=== PATIENT | female | born 1950 | race Caucasian/White ===

== ENCOUNTER 2017-03-11 13:24 | Emergency (ER) | payer MEDICARE, MEDICAID ==
--- NOTE | 2017-03-11 14:07 | ED.PDOC ---
History of Present Illness - General Chief Complaint: Trauma Stated Complaint: fall Time Seen by Provider: 03/11/17 13:42 Source: patient, RN notes reviewed, Vital Signs reviewed Exam Limitations: no limitations - History of Present Illness Initial Comments: Patient comes in with c/o R hip & leg pain after a fall @ home on 03/08/17. Reports she has been having problems with her balance for the past 4-5 days. Reports this happens off and on for the past year. Prior to the balance issue she gets a bad TATUM. She was suppose to see a Neurologist but has not. He reports she can't walk due to the pain in her R leg. She had a hip fracture in the past that was repaired surgically. She has been taking Hydrocodone 10mg Q6 hours at home without relief of her pain. She is on Pelican and Morphine chronically for chronic back pain. She also takes Valium, Xanax and Ambien on a daily basis. Timing/Duration: constant - for 4 days Severity: severe Improving Factors: rest Worsening Factors: movement Associated Symptoms: headaches, shortness of breath Allergies/Adverse Reactions: Allergies Aspirin Allergy (Verified 03/11/17 13:46) Codeine Allergy (Verified 03/11/17 13:46) Penicillins Allergy (Verified 03/11/17 13:46) Sulfa Drugs Allergy (Verified 03/11/17 13:46) Home Medications: Ambulatory Orders Duloxetine HCl [Cymbalta] 60 mg PO DAILY 10/24/12 Esomeprazole Magnesium [Nexium] 40 mg PO DAILY 10/24/12 Furosemide [Lasix] 20 mg PO DAILY 10/24/12 Multiple Vitamin [Multivitamins] 1 cap PO DAILY 10/24/12 Nitroglycerin [Nitrostat] 0.4 mg SL .Q5MIN X3 PRN 10/24/12 Quetiapine Fumarate [Seroquel] 200 mg PO HS 10/24/12 Zolpidem Tartrate [Ambien] 10 mg PO HS 10/24/12 Montelukast [Singulair] 10 mg PO DAILY 10/25/12 Topiramate 50 mg PO QID 10/25/12 tiZANidine [Zanaflex] 4 mg PO BID PRN 10/25/12 Acetaminophen [Tylenol] 650 mg PO Q6H PRN 04/21/14 Albuterol Sulfate Nebs [Proventil Nebs] 2.5 mg INH QID PRN 04/21/14 Ferrous Sulfate [Feosol Tab] 325 mg PO TID 04/21/14 Fluticasone/Salmeterol 250/50 [Advair Diskus] 1 puff INH DAILY 04/21/14 Gabapentin 300 mg PO TID 04/21/14 HYDROcodone 10MG/APAP 325MG [Pelican 10/325] 1 - 2 ea PO Q4H PRN 04/21/14 Morphine Sulfate [Ms Contin] 30 mg PO DAILY 04/21/14 Ondansetron Tab [Zofran Tab] 4 mg PO Q6H PRN 04/21/14 Acetaminophen W/ Codeine [Tylenol w/Codeine 300-30 mg] 1 tab PO Q4HR PRN #10 tab 09/02/14 Albuterol Inhaler [Ventolin Hfa Inhaler] 1 puff INH DAILY 04/01/16 Cholecalciferol [Vitamin D] 1,000 unit PO DAILY 04/01/16 Cyclobenzaprine HCl [Flexeril] 10 mg PO PRN PRN 04/01/16 Fluticasone/Salmeterol 250/50 [Advair Diskus] 0 mcg INH BID 04/01/16 HYDROcodone 10MG/APAP 325MG [Pelican 10/325] 1 tab PO PRN PRN 04/01/16 Lisinopril 20 mg PO DAILY 04/01/16 Montelukast [Singulair] 10 mg PO DAILY 04/01/16 Prochlorperazine Tab [Compazine Tab] 5 mg PO DAILY 04/01/16 Promethazine HCl 25 mg PO PRN PRN 04/01/16 Tramadol HCl 50 mg PO BID 04/01/16 levoFLOXacin [Levaquin] 500 mg PO DAILY #14 tab 03/11/17 Review of Systems - Review of Systems Constitutional: States: no symptoms reported EENTM: States: no symptoms reported Respiratory: States: short of breath Cardiology: States: no symptoms reported Gastrointestinal/Abdominal: States: no symptoms reported Musculoskeletal: States: back pain - chronic, joint pain - R hip and knee, joint swelling - R knee Skin: States: no symptoms reported Neurological: States: headache All other Systems: No Change from Baseline Past Medical History (General) - Patient Medical History Hx Seizures: No Hx Stroke: No Hx Asthma: Yes Hx of COPD: Yes Hx Cardiac Disorders: Yes Hx Congestive Heart Failure: Yes Hx Pacemaker: No Hx Hypertension: Yes Hx Diabetes: No Hx Gastroesophageal Reflux: Yes Hx MRSA: No Surgical History: cholecystectomy - Vaccination History Hx Tetanus, Diphtheria Vaccination: No Hx Influenza Vaccination: No Hx Pneumococcal Vaccination: No - Social History Hx Tobacco Use: No Hx Alcohol Use: No Hx Substance Use: No Hx Substance Use Treatment: No Hx Depression: No Hx Physical Abuse: No Hx Emotional Abuse: No - Female History Patient is a Female of Child Bearing Age (10 -59 yrs old): No Patient : No Family Medical History - Family History Grandparents Family History: Unknown Physical Exam - Physical Exam General Appearance: Comfortable, No apparent distress, Lethargic, Well Developed , Well Groomed, Well Hydrated, Well Nourished Ears, Nose, Throat: hearing grossly normal Neck: full range of motion, supple, normal inspection Respiratory: lungs clear, normal breath sounds, no respiratory distress, no accessory muscle use Cardiovascular/Chest: normal peripheral pulses, regular rate, rhythm, no gallop , no murmur Peripheral Pulses: dorsalis pedis,right: 2+, dorsalis pedis,left: 2+ Extremity: swelling - R knee with joint effusion and limited ROM due to pain and swelling., other - R hip: limited ROM due to pain, tender over lateral mid thigh. Neurologic: no motor/sensory deficits, alert, normal mood/affect, oriented x 3 Skin Exam: normal color, warm/dry Comments: Vital Signs 03/11/17 13:33 Temperature 98 F Pulse Rate [ 57 L pulse ox] Respiratory 16 Rate Blood Pressure 141/70 [Left Arm] O2 Sat by Pulse 94 L Oximetry Progress - Progress Progress: 03/11/17 15:00 Patient walked to bathroom with minimal assistance by nurse. - Results/Orders Results/Orders: Laboratory Tests 03/11/17 03/11/17 03/11/17 14:05 14:05 14:53 WBC 5.8 RBC 3.86 L Hgb 11.8 L Hct 36.1 MCV 93.5 MCH 30.5 MCHC 32.8 L RDW 13.0 Plt Count 176 MPV 8.3 Absolute Neuts (auto) 3.40 Absolute Lymphs (auto) 1.50 Absolute Monos (auto) 0.40 Absolute Eos (auto) 0.40 Absolute Basos (auto) 0.10 Neutrophils % 59.3 Lymphocytes % 25.6 Monocytes % 6.8 Eosinophils % 6.4 H Basophils % 1.9 Sodium 137 Potassium 3.1 L Chloride 97 L Carbon Dioxide 32 H Anion Gap 11.1 L BUN 22 H Creatinine 0.95 BUN/Creatinine Ratio 23.2 H Random Glucose 90 Serum Osmolality 276.7 Calcium 8.6 Total Bilirubin 0.5 AST 25 ALT 15 Alkaline Phosphatase 87 Serum Total Protein 6.8 Albumin 3.8 Globulin 3.0 Albumin/Globulin Ratio 1.3 Urine Color Urine Appearance Urine pH Ur Specific [place] Urine Protein Urine Glucose (UA) Urine Ketones Urine Blood Urine Nitrite Urine Bilirubin Urine Urobilinogen Ur Leukocyte Esterase Urine RBC Urine WBC Ur Epithelial Cells Urine Bacteria Urine Opiates Screen Negative Urine Barbiturates Negative Ur Phencyclidine Scrn Negative U Amphetamin/Meth Scrn Negative U Benzodiazepines Scrn Positive H U Cocaine Metab Screen Negative U Cannabinoids Screen Negative 03/11/17 14:55 WBC RBC Hgb Hct MCV MCH MCHC RDW Plt Count MPV Absolute Neuts (auto) Absolute Lymphs (auto) Absolute Monos (auto) Absolute Eos (auto) Absolute Basos (auto) Neutrophils % Lymphocytes % Monocytes % Eosinophils % Basophils % Sodium Potassium Chloride Carbon Dioxide Anion Gap BUN Creatinine BUN/Creatinine Ratio Random Glucose Serum Osmolality Calcium Total Bilirubin AST ALT Alkaline Phosphatase Serum Total Protein Albumin Globulin Albumin/Globulin Ratio Urine Color Yellow Urine Appearance Clear Urine pH 7.0 Ur Specific [place] 1.020 Urine Protein Negative Urine Glucose (UA) Negative Urine Ketones Negative Urine Blood Negative Urine Nitrite Negative Urine Bilirubin Negative Urine Urobilinogen 0.2 Ur Leukocyte Esterase Negative Urine RBC 0 Urine WBC 0 Ur Epithelial Cells 1-3 Urine Bacteria 0 Urine Opiates Screen Urine Barbiturates Ur Phencyclidine Scrn U Amphetamin/Meth Scrn U Benzodiazepines Scrn U Cocaine Metab Screen U Cannabinoids Screen - EKG/XRAY/CT XRAY: R knee: DJD & Osteoporosis, no acute injury per Radiologist. - old internal fixator, no acute fracture per Radiologist CT Ordered: Yes - Head: no acute findings other than chronic maxillary sinusitis per Radiolog Departure - Departure Clinical Impression: Maxillary sinusitis, chronic Sprain of right knee Qualifiers: Encounter type: initial encounter Involved ligament of knee: unspecified ligament Qualified Code(s): S83.91XA - Sprain of unspecified site of right knee , initial encounter Contusion of right hip and thigh Qualifiers: Encounter type: initial encounter Qualified Code(s): S70.01XA - Contusion of right hip, initial encounter Time of Disposition: 15:44 Disposition: Discharge to Home or Self Care Condition: Good Departure Forms: ED Discharge - Pt. Copy, Patient Portal Self Enrollment Instructions: DI for Sinusitis, DI for Knee Sprain, DI for Contusion Diet: resume usual diet Activity: increase activity as tolerated Referrals: Sachin Simpson MD [Primary Care Provider] - 1-2 Weeks Prescriptions: levoFLOXacin [Levaquin] 500 mg PO DAILY #14 tab Home Medications: Ambulatory Orders Duloxetine HCl [Cymbalta] 60 mg PO DAILY 10/24/12 Esomeprazole Magnesium [Nexium] 40 mg PO DAILY 10/24/12 Furosemide [Lasix] 20 mg PO DAILY 10/24/12 Multiple Vitamin [Multivitamins] 1 cap PO DAILY 10/24/12 Nitroglycerin [Nitrostat] 0.4 mg SL .Q5MIN X3 PRN 10/24/12 Quetiapine Fumarate [Seroquel] 200 mg PO HS 10/24/12 Zolpidem Tartrate [Ambien] 10 mg PO HS 10/24/12 Montelukast [Singulair] 10 mg PO DAILY 10/25/12 Topiramate 50 mg PO QID 10/25/12 tiZANidine [Zanaflex] 4 mg PO BID PRN 10/25/12 Acetaminophen [Tylenol] 650 mg PO Q6H PRN 04/21/14 Albuterol Sulfate Nebs [Proventil Nebs] 2.5 mg INH QID PRN 04/21/14 Ferrous Sulfate [Feosol Tab] 325 mg PO TID 04/21/14 Fluticasone/Salmeterol 250/50 [Advair Diskus] 1 puff INH DAILY 04/21/14 Gabapentin 300 mg PO TID 04/21/14 HYDROcodone 10MG/APAP 325MG [Pelican 10/325] 1 - 2 ea PO Q4H PRN 04/21/14 Morphine Sulfate [Ms Contin] 30 mg PO DAILY 04/21/14 Ondansetron Tab [Zofran Tab] 4 mg PO Q6H PRN 04/21/14 Acetaminophen W/ Codeine [Tylenol w/Codeine 300-30 mg] 1 tab PO Q4HR PRN #10 tab 09/02/14 Albuterol Inhaler [Ventolin Hfa Inhaler] 1 puff INH DAILY 04/01/16 Cholecalciferol [Vitamin D] 1,000 unit PO DAILY 04/01/16 Cyclobenzaprine HCl [Flexeril] 10 mg PO PRN PRN 04/01/16 Fluticasone/Salmeterol 250/50 [Advair Diskus] 0 mcg INH BID 04/01/16 HYDROcodone 10MG/APAP 325MG [Pelican 10325] 1 tab PO PRN PRN 04/01/16 Lisinopril 20 mg PO DAILY 04/01/16 Montelukast [Singulair] 10 mg PO DAILY 04/01/16 Prochlorperazine Tab [Compazine Tab] 5 mg PO DAILY 04/01/16 Promethazine HCl 25 mg PO PRN PRN 04/01/16 Tramadol HCl 50 mg PO BID 04/01/16 levoFLOXacin [Levaquin] 500 mg PO DAILY #14 tab 03/11/17 Additional Instructions: Con't home pain medications as needed.
[2017-03-11 14:24] VITALS: TEMP 98
--- NOTE | 2017-03-11 14:35 | RAD ---
EXAM DESCRIPTION: Hip,Right 2 Views CLINICAL HISTORY: Pain s/p fall 03/08 COMPARISON: January 06, 2013. TECHNIQUE: AP/frog leg lateral FINDINGS: Two views of the right hip demonstrate internal fixation with an interlocking short intramedullary antonio and threaded pin into the femoral head. This is unchanged in appearance compared to January 2013 examination. An acute fracture is not apparent. Osteopenia is present. The joint spaces well-maintained. IMPRESSION: Normal appearance of the right hip with previous remote internal fixation. Electronically signed by: Romeo Grimes MD 03/11/2017 2:33 PM CDT
--- NOTE | 2017-03-11 14:36 | RAD ---
EXAM DESCRIPTION: Knee,Right 2 or More Views CLINICAL HISTORY: 66 years, Female, Pain s/p fall 03/08 COMPARISON: October 02, 2013 TECHNIQUE: Two views right knee FINDINGS: The right knee is severely osteopenic with advanced degenerative changes involving the medial joint compartment and moderate degenerative changes involving the lateral and patellofemoral compartments. A small joint effusion is present. A distinct fracture or deformity is not apparent. IMPRESSION: 1. *Degenerative changes and osteopenia. Electronically signed by: Romeo Grimes MD 03/11/2017 2:35 PM CDT
--- NOTE | 2017-03-11 14:46 | CT ---
EXAM DESCRIPTION: Head CLINICAL HISTORY: TATUM with loss of balance X5 days COMPARISON: April 21, 2014 TECHNIQUE: Noncontrast transaxial CT images of the head are obtained from base to vertex. This exam was performed according to our departmental dose-optimization program, which includes automated exposure control, adjustment of the mA and/or kV according to patient size and/or use of iterative reconstruction technique. FINDINGS: The midline structures are not displaced. Sulci are age-appropriate. There are areas of decreased attenuation in the periventricular white matter and the white matter of the centrum semiovale. There is no evidence of mass, mass-effect, hydrocephalus, or acute intracranial hemorrhage. No abnormal extra axial fluid collection is seen. Bone windows show no evidence of depressed skull fracture. Moderate calcifications of the intracranial carotid arteries are seen. There is near complete opacification of the left maxillary sinus. Small 1 cm focus of increased attenuation in the anterior medial left maxillary sinus is seen. Mild mucosal thickening in left ethmoid air cells is seen.. IMPRESSION: 1. Age-appropriate atrophy with evidence of old small vessel ischemic type changes seen. 2. No acute abnormality is seen on noncontrast CT of the head. 3. Subacute to chronic left maxillary sinus with near complete opacification of the sinus is seen. Electronically signed by: Hemanth Domínguez MD 03/11/2017 2:45 PM CDT
[2017-03-11 15:44] VITALS: O2SAT 100
[2017-03-11 16:08] VITALS: BP 125/82
== END 2017-03-11 16:00 | disposition home or self-care (01) ==
LOC: ER 13:24
DX: S83.91XA Sprain of unspecified site of right knee, initial encounter (principal); S70.01XA Contusion of right hip, initial encounter; J32.0 Chronic maxillary sinusitis; M81.0 Age-related osteoporosis without current pathological fracture; J44.9 Chronic obstructive pulmonary disease, unspecified; I11.0 Hypertensive heart disease with heart failure; I50.9 Heart failure, unspecified; K21.9 Gastro-esophageal reflux disease without esophagitis; Z79.899 Other long term (current) drug therapy; Z88.0 Allergy status to penicillin; Z88.2 Allergy status to sulfonamides; Z88.6 Allergy status to analgesic agent; W19.XXXA Unspecified fall, initial encounter; Y92.009 Unspecified place in unspecified non-institutional (private) residence as the place of occurrence of the external cause

== ENCOUNTER 2017-12-25 13:15 | Inpatient (IN) | payer MEDICARE, MEDICAID ==
[2017-12-25] MEDS ORDERED: SODIUM CHLORIDE 0.9% 1000ML 1,000 ML IVS ONE (13:23)
--- NOTE | 2017-12-25 13:27 | ED.PDOC ---
History of Present Illness - General Chief Complaint: Lower Extremity Injury Stated Complaint: syncope right knee pain Time Seen by Provider: 12/25/17 13:22 Source: patient Exam Limitations: no limitations - History of Present Illness Initial Comments: patient comes in today for syncope and subsequent injury to her right knee. Patient states the last several weeks she's had 2 other episodes prior to today of syncope. Today she became lightheaded stood up and then fell to the ground losing consciousness for approximately 10-30 seconds. Patient stated that it was witnessed by her and she had no tonic-clonic activity. She's had no loss of bowel or bladder continence. Patient states she just feels very weak but denies any chest pain, shortness of breath, recent nausea or vomiting, or cough or cold symptoms. She was sick a couple of weeks ago but the symptoms resolved approximately a week ago. Patient denies any headache or head injury currently. She is complaining of pain to her right knee from the fall. Patient normally ambulates without difficulty but was unable to get up after her syncopal episode. Patient has been in normal health with the exception of occasional bouts of chest tightness over the past couple weeks. She has been referred to cardiology for this and is not currently symptomatic nor has she been today. Patient denies any numbness or change in sensation from her upper or lower extremities. She's had no difficulty with speech. She has never smoked, drank, or taken illicit drugs but she does have COPD from second hand smoke. She has anxiety disorder, HTN, and chronic hernias. Timing/Duration: 1/2 hour Severity: moderate Improving Factors: nothing Worsening Factors: nothing Associated Symptoms: denies symptoms Allergies/Adverse Reactions: Allergies Aspirin Allergy (Verified 03/11/17 13:46) Codeine Allergy (Verified 03/11/17 13:46) Penicillins Allergy (Verified 03/11/17 13:46) Sulfa Drugs Allergy (Verified 03/11/17 13:46) Home Medications: Ambulatory Orders Duloxetine HCl [Cymbalta] 60 mg PO DAILY 10/24/12 Esomeprazole Magnesium [Nexium] 40 mg PO DAILY 10/24/12 Furosemide [Lasix] 20 mg PO DAILY 10/24/12 Multiple Vitamin [Multivitamins] 1 cap PO DAILY 10/24/12 Nitroglycerin [Nitrostat] 0.4 mg SL .Q5MIN X3 PRN 10/24/12 Quetiapine Fumarate [Seroquel] 200 mg PO HS 10/24/12 Zolpidem Tartrate [Ambien] 10 mg PO HS 10/24/12 Montelukast [Singulair] 10 mg PO DAILY 10/25/12 Topiramate 50 mg PO QID 10/25/12 tiZANidine [Zanaflex] 4 mg PO BID PRN 10/25/12 Acetaminophen [Tylenol] 650 mg PO Q6H PRN 04/21/14 Albuterol Sulfate Nebs [Proventil Nebs] 2.5 mg INH QID PRN 04/21/14 Ferrous Sulfate [Feosol Tab] 325 mg PO TID 04/21/14 Fluticasone/Salmeterol 250/50 [Advair Diskus] 1 puff INH DAILY 04/21/14 Gabapentin 300 mg PO TID 04/21/14 HYDROcodone 10MG/APAP 325MG [[place] 10/325] 1 - 2 ea PO Q4H PRN 04/21/14 Morphine Sulfate [Ms Contin] 30 mg PO DAILY 04/21/14 Ondansetron Tab [Zofran Tab] 4 mg PO Q6H PRN 04/21/14 Acetaminophen W/ Codeine [Tylenol w/Codeine 300-30 mg] 1 tab PO Q4HR PRN #10 tab 09/02/14 Albuterol Inhaler [Ventolin Hfa Inhaler] 1 puff INH DAILY 04/01/16 Cholecalciferol [Vitamin D] 1,000 unit PO DAILY 04/01/16 Cyclobenzaprine HCl [Flexeril] 10 mg PO PRN PRN 04/01/16 Fluticasone/Salmeterol 250/50 [Advair Diskus] 0 mcg INH BID 04/01/16 HYDROcodone 10MG/APAP 325MG [[place] 10/325] 1 tab PO PRN PRN 04/01/16 Lisinopril 20 mg PO DAILY 04/01/16 Montelukast [Singulair] 10 mg PO DAILY 04/01/16 Prochlorperazine Tab [Compazine Tab] 5 mg PO DAILY 04/01/16 Promethazine HCl 25 mg PO PRN PRN 04/01/16 Tramadol HCl 50 mg PO BID 04/01/16 levoFLOXacin [Levaquin] 500 mg PO DAILY #14 tab 03/11/17 Review of Systems - Review of Systems Constitutional: States: weakness. Denies: chills, diaphoresis, fever EENTM: States: no symptoms reported. Denies: eye pain, ear pain, nose pain, throat pain Respiratory: States: no symptoms reported. Denies: cough, orthopnea, short of breath, wheezing Cardiology: States: no symptoms reported. Denies: chest pain, edema, palpitations, syncope Gastrointestinal/Abdominal: States: no symptoms reported. Denies: abdominal pain, constipation, diarrhea, vomiting Genitourinary: States: dysuria Musculoskeletal: States: see HPI Neurological: States: see HPI Past Medical History (General) - Patient Medical History Hx Seizures: No Hx Stroke: No Hx Asthma: Yes Hx of COPD: Yes Hx Cardiac Disorders: Yes Hx Congestive Heart Failure: Yes Hx Pacemaker: No Hx Hypertension: Yes Hx Diabetes: No Hx Gastroesophageal Reflux: Yes Hx MRSA: No - Vaccination History Hx Tetanus, Diphtheria Vaccination: No Hx Influenza Vaccination: No Hx Pneumococcal Vaccination: No - Social History Hx Tobacco Use: No Hx Alcohol Use: No Hx Substance Use: No Hx Substance Use Treatment: No Hx Depression: No Hx Physical Abuse: No Hx Emotional Abuse: No - Female History Patient : No Family Medical History - Family History Grandparents Family History: Unknown Physical Exam - Physical Exam General Appearance: Frail, No apparent distress Eye Exam: bilateral normal Ears, Nose, Throat: hearing grossly normal, normal ENT inspection, normal pharynx Neck: non-tender, full range of motion, supple, normal inspection Respiratory: chest non-tender, lungs clear, normal breath sounds, no respiratory distress Cardiovascular/Chest: normal peripheral pulses, regular rate, rhythm, no edema, no gallop, no JVD, no murmur Peripheral Pulses: radial,right: 2+, radial,left: 2+ Gastrointestinal/Abdominal: normal bowel sounds, non tender, soft, no organomegaly Back Exam: normal inspection, no CVA tenderness Extremity: other - tenderness to medial joint line knee with mild swelling and no bruising or deformity Neurologic: night shift supervisor II-XII nml as tested, alert, oriented x 3, other - generalized weakness but no drift, motor is 4/5 x 4 extremities, Skin Exam: normal color Lymphatic: no adenopathy Progress - Progress Progress: 12/25/17 14:51 07/20/18 13:23 EKG Assessment ONCE URINALYSIS Stat 12/25/17 13:24 URINE DRUG SCREEN, 7 ASSAY Stat 12/25/17 13:30 EKG STAT Laboratory Results WBC 4.2 K/mm3 (4.8-10.8) L 12/25/17 13:27 RBC 3.65 M/mm3 (4.20-5.40) L 12/25/17 13:27 Hgb 11.6 gm/dL (12.0-16.0) L 12/25/17 13:27 Hct 34.2 % (36.0-47.0) L 12/25/17 13:27 MCV 93.5 fl (81.0-99.0) 12/25/17 13:27 MCH 31.7 pg (27.0-31.0) H 12/25/17 13:27 MCHC 33.8 g/dL (33.0-37.0) 12/25/17 13:27 RDW 13.4 % (11.5-14.5) 12/25/17 13:27 Plt Count 181 K/mm3 (130-400) 12/25/17 13:27 MPV 8.4 fl (7.40-10.4) 12/25/17 13:27 Absolute Neuts (auto) 2.10 K/uL (1.8-6.8) 12/25/17 13:27 Absolute Lymphs (auto) 1.60 K/uL (1.0-3.4) 12/25/17 13:27 Absolute Monos (auto) 0.20 K/uL (0.2-0.8) 12/25/17 13:27 Absolute Eos (auto) 0.20 K/uL (0.0-0.4) 12/25/17 13:27 Absolute Basos (auto) 0.10 K/uL (0.0-0.1) 12/25/17 13:27 Neutrophils % 49.4 % (42.0-78.0) 12/25/17 13:27 Lymphocytes % 38.7 % (20.0-50.0) 12/25/17 13:27 Monocytes % 4.9 % (2.0-9.0) 12/25/17 13:27 Eosinophils % 5.8 % (1.0-5.0) H 12/25/17 13:27 Basophils % 1.2 % (0.0-2.0) 12/25/17 13:27 Sodium 134 mmol/L (135-145) L 12/25/17 13:27 Potassium 4.1 mmol/L (3.6-5.0) 12/25/17 13:27 Chloride 103 mmol/L (101-111) 12/25/17 13:27 Carbon Dioxide 25 mmol/L (21-31) 12/25/17 13:27 Anion Gap 10.1 (12-18) L 12/25/17 13:27 BUN 16 mg/dL (7-18) 12/25/17 13:27 Creatinine 0.98 mg/dL (0.6-1.3) 12/25/17 13:27 BUN/Creatinine Ratio 16.3 (10-20) 12/25/17 13:27 Random Glucose 127 mg/dL (70-105) H 12/25/17 13:27 Serum Osmolality 271.0 mOsm/L (275-295) L 12/25/17 13:27 Lactic Acid 1.0 mmol/L (0.5-2.2) 12/25/17 13:34 Calcium 8.7 mg/dL (8.4-10.2) 12/25/17 13:27 Total Bilirubin 0.4 mg/dL (0.2-1.0) 12/25/17 13:27 AST 14 IU/L (10-42) 12/25/17 13:27 ALT < 8 IU/L (10-60) L 12/25/17 13:27 Alkaline Phosphatase 81 IU/L (42-121) 12/25/17 13:27 Creatine Kinase 21 IU/L (26-140) L 12/25/17 13:27 CK-MB (CK-2) 0.7 ng/mL (0.0-4.4) 12/25/17 13:27 CK-MB (CK-2) % Not Reportable 12/25/17 13:27 Troponin I < 0.02 ng/mL (0.01-0.05) 12/25/17 13:27 Serum Total Protein 6.0 gm/dL (6.4-8.2) L 07/20/18 13:27 Albumin 3.1 g/dl (3.2-5.5) L 12/25/17 13:27 Globulin 2.9 gm/dL (2.3-3.5) 12/25/17 13:27 Albumin/Globulin Ratio 1.1 (1.1-1.9) 12/25/17 13:27 Patient Name: KATIE TELLO Gender: Female Date of : 1950 Referring Physician: MEHRAN HOSKINS Organization: [facility] Accession Number: [id number] Requested Date: December 25, 2017 13:23 Report Status: Final Requested Procedure: 1 Procedure Description: Head Modality: CT Findings Reporting MD: Derrick Carrasquillo Fellow MD: Not available Dictation Time: Clinical Trial Specialist: Not available Centrifugal Screen Tender Date: EXAM DESCRIPTION: Head: Computed Tomography. CLINICAL HISTORY: LOC. Frequent falls. History of breast cancer with chemotherapy. COMPARISON: CT scan of the head without contrast March 11, 2017. TECHNIQUE: Non-helical axial scans through the skull and brain, at 2.5 intervals, non-contrast. Coronal and sagittal 2.0 mm reconstructions. Total Exam DLP: 859.97 mGy-cm. This exam was performed according to our departmental dose-optimization program which includes automated exposure control, adjustment of the mA and/or kV according to patient size and/or use of iterative reconstruction technique; to reduce radiation dose to as low as reasonably achievable (ALARA). FINDINGS: No hemorrhage, no mass-effect, and no midline shift. Mild bilateral symmetric decreased density of the periventricular white matter slightly more prominent in the frontal lobes. No abnormal radiodense material in the brain parenchyma. Vascular calcifications anterior and posterior; physiologic calcifications in the pineal gland and choroid plexus. No effacement or displacement of the ventricles, CSF spaces, or subdural spaces. No extra axial fluid collection or hemorrhage. No gross abnormalities of the bony calvarium.. Chronic thickening of the inner table of the frontal bones. Prominent frontal sinuses. Included paranasal sinuses and mastoid air cells are well - aerated. Resolution of acute left maxillary sinusitis seen on the prior study. IMPRESSION: 1. No hemorrhage, no mass effect, no midline shift. Minimal periventricular white matter cerebral microvascular disease, and the remainder of the brain has not age appropriate appearance. Stable since the prior study March 2017. 2. CT scans are insensitive for detecting small CVAs in the first 24 hours after onset. Evaluation of the brain stem is also [facility] [address] [place] [address], [address] [place], [place] T [phone] [email or web address] - Report exported on Dec 25, 2017 14:51:03 -0500 - Page 2 of 2 limited. If symptoms persist, consider NON-EMERGENT MRI scan of the brain with diffusion imaging Patient Name: KATIE TELLO Gender: Female Date of : 1950 Referring Physician: MEHRAN HOSKINS Organization: [facility] Accession Number: [id number] Requested Date: December 25, 2017 13:24 Report Status: Final Requested Procedure: 1 Procedure Description: Knee,Right 2 or More Views Modality: CR Findings Reporting MD: Keegan Mohamud Fellow MD: Not available Dictation Time: Clinical Trial Specialist: Not available Centrifugal Screen Tender Date: EXAM DESCRIPTION: Knee,Right 2 or More Views CLINICAL HISTORY: 67 yearsFemale, fall COMPARISON: 03/11/2017 IMPRESSION: The bones are demineralized. Severe changes of osteoarthritis are demonstrated involving all 3 compartments of the knee with narrowing of the joint spaces and marginal osteophytes. No definite evidence of acute fracture, dislocation, or destructive osseous lesion. Trace suprapatellar joint effusion 12/25/17 16:54 patient has new onset A. fib with symptoms suggestive that this may have happened about 2 weeks ago. I started her on present accidentand we called for admission for observation as she did have a syncopal episode with this. Discussed with on-call practitioner Deepa Lorenzo and she was accepted - EKG/XRAY/CT EKG: Atrial, Fibrillation Comments: HR 95 with prolonged QT and normal axis Departure - Departure Clinical Impression: Atrial fibrillation Qualifiers: Atrial fibrillation type: unspecified Qualified Code(s): I48.91 - Unspecified atrial fibrillation Syncope Qualifiers: Syncope type: unspecified Qualified Code(s): R55 - Syncope and collapse Disposition: Admit Patient Condition: Good Departure Forms: ED Discharge - Pt. Copy, Patient Portal Self Enrollment Instructions: DI for Leg Pain Referrals: Sachin Simpson MD [Primary Care Provider] - 1-2 Weeks Home Medications: Ambulatory Orders Duloxetine HCl [Cymbalta] 60 mg PO DAILY 10/24/12 Esomeprazole Magnesium [Nexium] 40 mg PO DAILY 10/24/12 Furosemide [Lasix] 20 mg PO DAILY 10/24/12 Multiple Vitamin [Multivitamins] 1 cap PO DAILY 10/24/12 Nitroglycerin [Nitrostat] 0.4 mg SL .Q5MIN X3 PRN 10/24/12 Quetiapine Fumarate [Seroquel] 200 mg PO HS 10/24/12 Zolpidem Tartrate [Ambien] 10 mg PO HS 10/24/12 Montelukast [Singulair] 10 mg PO DAILY 10/25/12 Topiramate 50 mg PO QID 10/25/12 tiZANidine [Zanaflex] 4 mg PO BID PRN 10/25/12 Acetaminophen [Tylenol] 650 mg PO Q6H PRN 04/21/14 Albuterol Sulfate Nebs [Proventil Nebs] 2.5 mg INH QID PRN 04/21/14 Ferrous Sulfate [Feosol Tab] 325 mg PO TID 04/21/14 Fluticasone/Salmeterol 250/50 [Advair Diskus] 1 puff INH DAILY 04/21/14 Gabapentin 300 mg PO TID 04/21/14 HYDROcodone 10MG/APAP 325MG [[place] 10/325] 1 - 2 ea PO Q4H PRN 04/21/14 Morphine Sulfate [Ms Contin] 30 mg PO DAILY 04/21/14 Ondansetron Tab [Zofran Tab] 4 mg PO Q6H PRN 04/21/14 Acetaminophen W/ Codeine [Tylenol w/Codeine 300-30 mg] 1 tab PO Q4HR PRN #10 tab 09/02/14 Albuterol Inhaler [Ventolin Hfa Inhaler] 1 puff INH DAILY 04/01/16 Cholecalciferol [Vitamin D] 1,000 unit PO DAILY 04/01/16 Cyclobenzaprine HCl [Flexeril] 10 mg PO PRN PRN 04/01/16 Fluticasone/Salmeterol 250/50 [Advair Diskus] 0 mcg INH BID 04/01/16 HYDROcodone 10MG/APAP 325MG [[place] ] 1 tab PO PRN PRN 04/01/16 Lisinopril 20 mg PO DAILY 04/01/16 Montelukast [Singulair] 10 mg PO DAILY 04/01/16 Prochlorperazine Tab [Compazine Tab] 5 mg PO DAILY 04/01/16 Promethazine HCl 25 mg PO PRN PRN 04/01/16 Tramadol HCl 50 mg PO BID 04/01/16 levoFLOXacin [Levaquin] 500 mg PO DAILY #14 tab 03/11/17
--- NOTE | 2017-12-25 14:21 | RAD ---
EXAM DESCRIPTION: Knee,Right 2 or More Views CLINICAL HISTORY: 67 yearsFemale, fall COMPARISON: 03/11/2017 IMPRESSION: The bones are demineralized. Severe changes of osteoarthritis are demonstrated involving all 3 compartments of the knee with narrowing of the joint spaces and marginal osteophytes. No definite evidence of acute fracture, dislocation, or destructive osseous lesion. Trace suprapatellar joint effusion. Electronically signed by: Keegan Mohamud MD 12/25/2017 2:20 PM CDT
--- NOTE | 2017-12-25 14:24 | CT ---
EXAM DESCRIPTION: Head: Computed Tomography. CLINICAL HISTORY: LOC. Frequent falls. History of breast cancer with chemotherapy. COMPARISON: CT scan of the head without contrast March 11, 2017. TECHNIQUE: Non-helical axial scans through the skull and brain, at 2.5 intervals, non-contrast. Coronal and sagittal 2.0 mm reconstructions. Total Exam DLP: 859.97 mGy-cm. This exam was performed according to our departmental dose-optimization program which includes automated exposure control, adjustment of the mA and/or kV according to patient size and/or use of iterative reconstruction technique; to reduce radiation dose to as low as reasonably achievable (ALARA). FINDINGS: No hemorrhage, no mass-effect, and no midline shift. Mild bilateral symmetric decreased density of the periventricular white matter slightly more prominent in the frontal lobes. No abnormal radiodense material in the brain parenchyma. Vascular calcifications anterior and posterior; physiologic calcifications in the pineal gland and choroid plexus. No effacement or displacement of the ventricles, CSF spaces, or subdural spaces. No extra axial fluid collection or hemorrhage. No gross abnormalities of the bony calvarium.. Chronic thickening of the inner table of the frontal bones. Prominent frontal sinuses. Included paranasal sinuses and mastoid air cells are well - aerated. Resolution of acute left maxillary sinusitis seen on the prior study. IMPRESSION: 1. No hemorrhage, no mass effect, no midline shift. Minimal periventricular white matter cerebral microvascular disease, and the remainder of the brain has not age appropriate appearance. Stable since the prior study March 2017. 2. CT scans are insensitive for detecting small CVAs in the first 24 hours after onset. Evaluation of the brain stem is also limited. If symptoms persist, consider NON-EMERGENT MRI scan of the brain with diffusion imaging. Electronically signed by: Derrick Carrasquillo MD 12/25/2017 2:23 PM CDT
--- NOTE | 2017-12-25 17:51 | HP ---
SUPERVISING PHYSICIAN: Hemal Waters M.D. CHIEF COMPLAINT: Right knee pain and syncopal episode with chest pain. HISTORY OF PRESENT ILLNESS: This is a 67 year-old female that came to the Emergency Room today after she fell and sustained an injury to her right knee. She had a syncopal episode that was witnessed by her . She lost consciousness for approximately 10 to 30 seconds but she did not fall and hit her head. She did not have any seizure activity at that time. She had no loss of bowel or bladder. She just felt very weak. It started about 2 to 3 weeks ago, but it was much worse today and she has almost passed out several times in the last 2 to 3 weeks but never like she did today. She had some substernal chest pain with no diaphoresis. She also had some shortness of breath. There was no headache or head injury. She complained of her right knee hurting from the fall. She usually has no difficulty with ambulation but she does have a lot of chronic health problems. She has congestive heart failure and sees Dr. Koffi Rodriguez. She has never been diagnosed that she knows of with atrial fibrillation, but when she was hooked up to the monitor she was in atrial fibrillation with a controlled rate in the 90s. It has gone up several times into the low 100s, but her vital signs are stable. Blood pressure s 113/ 81 and she is afebrile. Respiratory rate is 16 and her O2 sat is 96% on room air. Laboratory in the Emergency Room revealed a white count of 4.2 with hemoglobin 11.6 and hematocrit 34.2. Sodium is slightly low at 134. Her other electrolytes are basically within normal limits. Lactic acid was 1. BUN 16, creatinine 0.98. Cardiac enzymes were negative. Urinalysis was within normal limits. Head CT was completed. It shows no hemorrhage. No mass effect. No midline shift. Minimal periventricular white matter cerebral microvascular disease that was stable since her prior study in 2017. Recommended if at any time we needed verification to have a non-emergent MRI. Right knee x-ray was done and shows a trace of suprapatellar joint effusion with severe changes of osteoarthritis demonstrated. No definite evidence of acute fracture, dislocation or destructive osseous lesion. Due to her syncopal episode as well as the new onset of atrial fibrillation, I was called for hospital admission. She was started on Pradaxa in the E. R. PAST MEDICAL HISTORY: 1. Depression. 2. Gastroesophageal reflux disease. 3. Congestive heart failure of unknown etiology. 4. Neuropathy. 5. Chronic back problems. 6. Chronic neck problems. 7. Insomnia. 8. Chronic obstructive pulmonary disease. 9. Asthma. 10. Seizures. PAST SURGICAL HISTORY: 1. Cholecystectomy. 2. Tonsillectomy. 3. Hysterectomy. 4. Gastric bypass in 2007. 5. Left hip replacement by Dr. Carrillo in [place]. 6. Right hip replacement by Dr. Weber. 7. Right knee scope. HOME MEDICATIONS: Per the EMR and awaiting verification. ALLERGIES: ASPIRIN, CODEINE, PENICILLIN AND SULFA. SOCIAL HISTORY: She lives in [place]. She sees Dr. Simpson. She is . She denies any smoking, ETOH or illicit drug use. REVIEW OF SYSTEMS: GENERAL: Negative for fever, chills or weight changes. HEENT: Negative for ear pain, vision changes, sore throat or sinus symptoms. RESPIRATORY: Positive for shortness of breath during her syncopal episodes but negative for coughing or wheezing. CARDIAC: Positive for chest pain during syncopal episode but none at this time. Negative for palpitations or tachycardia. GASTROINTESTINAL: Negative for abdominal pain, constipation, diarrhea, nausea or vomiting. GENITOURINARY: Positive for occasional dysuria but negative for hematuria or polyuria. MUSCULOSKELETAL: Positive for right knee pain as well as chronic back and neck pain. Negative for myalgias. SKIN: Positive for a "spider" bite on her left elbow that she is being treated with Levaquin for. Negative for any other lesions or rashes. NEUROLOGIC: Positive for syncope, dizziness, seizure approximately 2 weeks ago , and weakness. PHYSICAL EXAMINATION: VITAL SIGNS: She is afebrile, heart rate 111, blood pressure 113/81, respiratory rate 16, O2 sat 98% on room air. GENERAL: This is a 67 year-old female who appears older than her stated age. She is in no acute distress. HEENT: Normocephalic and atraumatic. Pupils are equal and reactive. NECK: Supple without mass. There is no discernible jugular venous distention. RESPIRATORY: Essentially clear to auscultation bilaterally. CARDIOVASCULAR: Regular to tachycardic rate, slightly irregular rhythm. GASTROINTESTINAL: Abdomen is soft, nondistended, non-tender. Bowel sounds are positive. EXTREMITIES: No cyanosis, clubbing or edema to the lower extremities. She does have some tenderness along the joint line of her right knee with some mild swelling and no bruising. NEUROLOGIC: Cranial nerves II-XII are grossly intact. She is alert and oriented times three. She does have slightly slurred speech. SKIN: Warm and dry. LABORATORY: Labs and films are as per the History of Present Illness. ASSESSMENT: 1. Syncope with loss of consciousness for 10 to 30 seconds. 2. Atrial fibrillation with controlled ventricular rate of 90 to 112 with no history of atrial fibrillation. 3. Congestive heart failure with no current echocardiogram and unknown etiology. Her qlikview developer is Dr. Rain in [place]. She is on an Flaco inhibitor but on no beta aaron. 4. Gastroesophageal reflux disease. 5. Depression. 6. Neuropathy. 7. Chronic pain syndrome. 8. Chronic obstructive pulmonary disease. 9. Asthma. 10. Seizure disorder. PLAN: We will place the patient in Observation. Monitor her rhythm closely overnight. I have given her a dose of Lovenox tonight and a dose of Lovenox in the morning, but she will be started on a routine dose of Pradaxa in the morning at [address] Rain is her qlikview developer. She does have an appointment with him next Thursday. She may need to go home on a quality assurance monitor chassis. I have seen no low heart rates while she has been in the hospital, but she is in atrial fibrillation. It may be helpful to get a current echocardiogram and recommend that if one has not been done in the last 2 years that she have one as well as be placed on a beta aaron in addition to her Flaco inhibitor. Will get her medicines verified. She has [facility] out of [place], [place]. They may be able to fax us a current medication list. Otherwise we will have to call [facility] in the morning for verification. She has a lot of pain medications and some discrepancies on her home list and admits that she does have some of her medications locked up at home. She does not know if she has a pain medication doctor for chronic pain medications. I have also initiated the chest pain guidelines as she came in with chest pains, although all of her initial cardiac workup has been negative. Will continue to monitor her closely and follow as needed. Dr. Waters is the collaborating physician available for consultation. #[id number] [facility]
[2017-12-25] MEDS ORDERED: DABIGATRAN ETEXILATE 75 MG CAP PO ONE (18:16)
[2017-12-25] MEDS ORDERED: NITROGLYCERIN 0.4 MG 25 EA TAB SL PRN (18:35)
[2017-12-25] MEDS ORDERED: ACETAMINOPHEN 325 MG TAB PO PRN (18:35)
[2017-12-25] MEDS ORDERED: SODIUM CHLORIDE 0.9% (FLUSH) 10 ML SYG IV PRN (18:35)
[2017-12-25] MEDS ORDERED: ENOXAPARIN SODIUM 40 MG/0.4 ML SYG SUBCU ONE (19:00)
[2017-12-25] MEDS: IV SET AND CAP CHANGE INJ INJ SCH (19:30)
[2017-12-25] MEDS: SODIUM CHLORIDE 0.9% (FLUSH) 10 ML SYG IV SCH (20:45)
[2017-12-25] MEDS ORDERED: NON-FORMULARY MEDICATION 1 EA MIS (Quetiapine Fumarate [Seroquel] 300 MG) PO SCH (21:00)
[2017-12-25] MEDS ORDERED: DABIGATRAN ETEXILATE 75 MG CAP PO SCH (21:00)
[2017-12-25] MEDS ORDERED: CYCLOBENZAPRINE HCL 10 MG TAB PO PRN (21:10)
[2017-12-25] MEDS ORDERED: TOPIRAMATE 100 MG PO SCH (21:15)
[2017-12-25] MEDS ORDERED: HYDROcodone 10MG/APAP 325MG 1 EA TAB PO PRN (21:15)
[2017-12-25] MEDS ORDERED: NON-FORMULARY MEDICATION 1 EA MIS (Duloxetine Hcl [Cymbalta] 60 MG) PO SCH (21:15)
[2017-12-25] MEDS ORDERED: DULoxetine HCL 30 MG CAP PO ONE (21:37)
[2017-12-25] MEDS ORDERED: QUEtiapine FUMARATE 100 MG TAB ONE (21:37)
[2017-12-25] MEDS: GABAPENTIN 300 MG CAP PO SCH (21:39)
[2017-12-25] MEDS: MONTELUKAST 10 MG TAB PO SCH (21:39)
[2017-12-25] MEDS ORDERED: ALBUTEROL SULFATE 2.5 MG/3 ML VIAL NEB PRN ×2 (23:50→23:52)
[2017-12-26] MEDS: PANTOPRAZOLE SODIUM TAB 40 MG PO SCH (06:19)
[2017-12-26] MEDS ORDERED: ENOXAPARIN SODIUM 40 MG/0.4 ML SYG SUBCU ONE (07:00)
[2017-12-26] MEDS ORDERED: ALBUTEROL SULFATE 2.5 MG/3 ML VIAL NEB SCH (08:00)
[2017-12-26] MEDS: REMOVE OLD PATCH TOP SCH (08:30)
[2017-12-26] MEDS ORDERED: LISINOPRIL 10 MG TAB PO SCH (09:00)
[2017-12-26] MEDS ORDERED: FUROSEMIDE 40 MG TAB PO SCH (09:00)
[2017-12-26] MEDS ORDERED: ASPIRIN TABLET 325 MG TAB PO SCH (09:00)
[2017-12-26] MEDS: TOPIRAMATE 25 MG TAB PO SCH ×3 (10:13→20:47)
[2017-12-26] MEDS: DABIGATRAN ETEXILATE 75 MG CAP PO SCH ×2 (10:14→20:47)
[2017-12-26] MEDS: DULoxetine HCL 30 MG CAP PO SCH ×2 (10:14→20:47)
[2017-12-26] MEDS: GABAPENTIN 300 MG CAP PO SCH ×2 (10:14→20:47)
[2017-12-26] MEDS: SODIUM CHLORIDE 0.9% (FLUSH) 10 ML SYG IV SCH ×2 (10:15→20:48)
[2017-12-26] MEDS ORDERED: SODIUM CHLORIDE 0.9% 500ML 500 ML IVS ONE (11:10)
[2017-12-26] MEDS: KCL 20MEQ/0.45% NS 1,000 ML IVS PRN (12:48)
[2017-12-26] MEDS ORDERED: HYDROcodone 10MG/APAP 325MG 1 EA TAB PO PRN (14:30)
--- NOTE | 2017-12-26 15:58 | RAD ---
PROCEDURE: Chest,2 Views CLINICAL HISTORY: SOB INDICATION: Same as above COMPARISON: 04/21/2014 TECHNIQUE: PA and and lateral chest radiographs were obtained. FINDINGS: There is thickening of the right horizontal fissure and presence of tiny left-sided pleural effusion along with mild left basilar infiltrate/bases There are no pneumothoraces The cardiomediastinal silhouette is stable. IMPRESSION: There is thickening of the right horizontal fissure and presence of tiny left-sided pleural effusion along with mild left basilar infiltrate/bases Electronically signed by: Curtis Silvestre MD 12/26/2017 3:57 PM CDT Workstation: [id number]
[2017-12-26] MEDS: LEVALBUTEROL NEBS 1.25 MG/3 ML VIAL NEB SCH ×2 (16:44→23:57)
[2017-12-26] MEDS ORDERED: FLUTICASONE/SALMETEROL 250/50 14 PUFF/17 GM INH INH ONE (20:44)
[2017-12-26] MEDS: MONTELUKAST 10 MG TAB PO SCH (20:47)
[2017-12-26] MEDS: QUEtiapine FUMARATE 100 MG TAB PO SCH (20:47)
[2017-12-26] MEDS: MORPHINE *IMMEDIATE RELEASE* 15 MG TAB PO SCH (20:47)
[2017-12-26] MEDS ORDERED: diazePAM 5 MG TAB PO SCH (21:00)
[2017-12-26] MEDS ORDERED: ZOLPIDEM TARTRATE 10 MG TAB PO SCH (21:00)
[2017-12-26] MEDS ORDERED: traMADol HCL 50 MG TAB PO SCH (21:00)
[2017-12-26] MEDS ORDERED: NITROGLYCERIN 0.4 MG/HR PATCH TOP SCH (21:00)
--- NOTE | 2017-12-26 22:03 | PN ---
DATE: 12/26/17 SUPERVISING PHYSICIAN: Hemal Waters M.D. SUBJECTIVE: The patient is lying in bed. She is alert but does look quite sleepy. She has been up to the restroom this morning. It was noted that her heart rate would increase into the 120s and the patient was having a significant amount of dizziness. Review of her medication shows she is on a large amount of multiple sedative medications, including Benzodiazepines and opioid derivatives. She has had no chest pains or shortness of breath and no additional syncopal episodes. OBJECTIVE: VITAL SIGNS: Temperature 97.9, pulse 119, blood pressure 109/57, respirations 18, satting 93% on room air. I's and O's are not accurate as the patient is not voiding in a hat and all voids have not been measured. Weight is 82.8 kg. CHEST: Lung sounds are clear to auscultation bilaterally. HEART: Slightly irregular rate and rhythm with the bedside monitor showing a rate of 115. ABDOMEN: Soft, non-tender. Positive bowel sounds. EXTREMITIES: No clubbing, cyanosis or edema. NEUROLOGIC: She was alert and oriented times three. LABORATORY: White count 3.9, hemoglobin 10.9, hematocrit 32.7, platelet count 157,000. Differential shows to be without a left shift. Chemistries show normal electrolytes with potassium 3.9, sodium 140, BUN 13, creatinine 0.87, magnesium 2.0, calcium 8.3. She has had 3 sets of cardiac enzymes that were both less than 0.02. Lipid panel this morning shows triglycerides of 161 with cholesterol 136. LDL was 81, HDL was 36. RADIOLOGY: Chest x-ray per radiology interpretation showed thickening of the right horizontal fissure and presence of tiny left sided pleural effusion along with mild left basilar infiltrate/bases. ASSESSMENT: 1. Syncopal episode with reported loss of consciousness for 10 to 30 seconds, uncertain etiology, although the patient has a new onset of atrial fibrillation or multifocal tachycardia as well as polypharmacy with large doses of Valium, morphine and other pain medications. 2. Atrial fibrillation with controlled ventricular rate between 90 to 115 with no past history of atrial fibrillation with EKG showing questionable multifocal atrial tachycardia requiring further cardiac telemetry. 3. Congestive heart failure with no echocardiogram on admission for review, uncertain etiology.with the patient being followed by Dr. Rain on an Flaco inhibitor but not on a beta aaron. 4. Gastroesophageal reflux disease. 5. Depression. 6. Neuropathy. 7. Chronic pain syndrome on multiple pain medication regimen. 8. Chronic obstructive pulmonary disease without any exacerbation with a component of asthma. 9. Seizure disorder. PLAN: I am going to go ahead and do multiple every 4 hour tilt vital signs. My biggest concern is the patient continues to have dizziness and her heart rate remains elevated, although she is not having any chest pains or shortness of breath. At this point her blood pressure is low enough that it is not advisable at this point to try to give a beta aaron or a calcium channel aaron. My concern is she may be hypovolemic and will try some normal saline bolus along with maintenance fluids for the next 12 to 24 hours with close monitoring of her vitals. In regards to her polypharmacy which may also contribute to her hypotension again complicating treatment of the underlying atrial fibrillation with atrial tachycardia. I will work to get a better understanding of her medication regimen from her pharmacy and work to decrease some of her medications that possibly could result in her syncopal episodes and hypotension, mainly the large dose of Valium which is on a scheduled basis. Will continue to do every 4 hours neuro checks and remain on cardiac telemetry, and hopefully be able to discharge tomorrow once the patient is showing a more stable blood pressure and is no longer having any syncope episodes or presyncopal episodes. Will go ahead and repeat labs in the morning. At this point I do not see any signs of infection. Will closely monitor her I's and O' s to prevent hopefully an exacerbation of congestive heart failure and again have better control of her blood pressure, and possibly be able to regulate her heart rate with a beta aaron if possible. Until the patient is more clinically stable, will continue to monitor and treat appropriately until discharge. #[id number] [facility]
[2017-12-27] MEDS: KCL 20MEQ/0.45% NS 1,000 ML IVS PRN (02:10)
[2017-12-27] MEDS: PANTOPRAZOLE SODIUM TAB 40 MG PO SCH (06:11)
[2017-12-27] MEDS ORDERED: PANTOPRAZOLE SODIUM TAB 40 MG PO SCH (06:30)
[2017-12-27] MEDS: DABIGATRAN ETEXILATE 75 MG CAP PO SCH ×2 (08:35→21:04)
[2017-12-27] MEDS: TOPIRAMATE 25 MG TAB PO SCH ×3 (08:35→21:02)
[2017-12-27] MEDS: MORPHINE *IMMEDIATE RELEASE* 15 MG TAB PO SCH ×2 (08:35→21:03)
[2017-12-27] MEDS: FERROUS SULFATE 325 MG TAB PO SCH (08:36)
[2017-12-27] MEDS: AMITRIPTYLINE HCL 25 MG TAB PO SCH (08:36)
[2017-12-27] MEDS: GABAPENTIN 300 MG CAP PO SCH ×2 (08:36→21:04)
[2017-12-27] MEDS: DULoxetine HCL 30 MG CAP PO SCH ×2 (08:36→21:04)
[2017-12-27] MEDS: REMOVE OLD PATCH TOP SCH (08:39)
[2017-12-27] MEDS: FLUTICASONE/SALMETEROL 250/50 14 PUFF/17 GM INH INH SCH (08:46)
[2017-12-27] MEDS: LEVALBUTEROL NEBS 1.25 MG/3 ML VIAL NEB SCH ×3 (08:46→23:52)
[2017-12-27] MEDS ORDERED: MONTELUKAST 10 MG TAB PO SCH (09:00)
--- NOTE | 2017-12-27 11:48 | CT ---
Procedure: CT CHEST ANGIOGRAPHY WITH IV CONTRAST Exam Date: 12/27/2017 9:48 AM CDT Ordering Provider: Lucas Dominguez NP Clinical Indication: elevated D-Dimer; SOB; Tachy ?PE Comparison: None Technique: Helically acquired axial images were obtained through the chest. Low osmolar IV contrast was given. Coronal 3D MIP reformats and Sagittal reformats were obtained. This exam was performed according to our departmental dose-optimization program which includes automated exposure control, adjustment of the mA and/or kV according to patient size and/or use of iterative reconstruction technique. Findings: A small filling defect which appears to be somewhat eccentric is seen in the right middle lobe pulmonary arterial branch. The heart size is mildly enlarged but there is no evidence of right heart strain. Faint groundglass opacities are seen in the dependent gradient. There is left basilar consolidation. Trace bilateral pleural effusions are present. Coronary artery calcifications are seen. No pathologic adenopathy by size criteria in the mediastinum, bilateral joseph or the bilateral axilla. No acute osseous abnormality. Partially imaged upper abdomen demonstrates intrahepatic biliary ductal dilatation. Postoperative changes are seen within the stomach. Impression: Pulmonary embolism within a right middle lobe, lobar arterial branch. No right heart strain. Cardiomegaly. Left basilar consolidation which may represent atelectasis or less likely pneumonia/aspiration. Recommend follow-up to document resolution. Mild pulmonary edema and trace bilateral pleural effusions. Intrahepatic biliary ductal dilatation. Recommend correlation with biliary function tests. ::: These findings were verbally reported by Demetrio Dinh MD to Lucas Dominguez NP on 12/27/2017 11:32 AM CDT. ::: Electronically signed by: Demetrio Dinh MD 12/27/2017 11:47 AM CDT
--- NOTE | 2017-12-27 14:48 | PN ---
DATE: 12/27/17 SUPERVISING PHYSICIAN: Hemal Waters M.D. SUBJECTIVE: The patient's blood pressure is responding to management of her medications, in fact, we held her Ambien, Tramadol, Valium, lisinopril and Nitrol. She continues to have persistent tachycardia which looks more regular. She is not having any shortness of breath or chest paint with this but does continue to have some mild dizziness. She is remaining hemodynamically stable. I explained to her that there were concerns she may have a pulmonary embolism and after talking with her she had noted she had had one in the remote past. OBJECTIVE: VITAL SIGNS: Temperature 98.4, pulse 118, blood pressure 100/70, respirations 14, saturation 94%. on room air. I's and O's are not well managed as she is not voiding as instructed into a measurable container. Weight is 84.2 kg. CHEST: Clear to auscultation bilaterally, just slightly diminished towards the bases without no rhonchi, rales, or wheezes noted. HEART: More regular rate with a continued rapid rhythm on the monitor being 110 to115. ABDOMEN: Soft, nontender. Positive bowel sounds. EXTREMITIES: No clubbing, cyanosis or edema. NEUROLOGIC: She was alert and oriented times three. LABORATORY: BNP this morning was slightly elevated at 233. TSH was normal at 0.81. Coagulation studies showed an elevated D-dimer at 1.91 but normal PT/ PTT. RADIOLOGY: Chest thoracic CTA to help rule out pulmonary embolism per radiology interpretation showed a pulmonary embolism within the right middle lobe, lobular arterial branch but no right heart strain. There was note of cardiomegaly with some pulmonary edema and trace bilateral pleural effusions. There was also noted left basilar consolidation which could represent atelectasis or less likely pneumonia aspiration. There was also note of intrahepatic biliary duct dilation. ASSESSMENT: 1. Acute pulmonary embolism involving the right middle lobe pulmonary system with no evidence of right heart strain as per on CT findings. Patient was started on Pradaxa. 2. Persistent tachycardia, although showing on EKG to be a sinus tachycardia, regular rate secondary to #1 but showing to be hemodynamically stable. 3. History of congestive heart failure with no echocardiogram on admission for review, [place] it to be more of a systolic dysfunction an currently followed by Dr. Rain on an Flaco inhibitor but not on a beta aaron. 4. Gastroesophageal reflux disease. 5. Depression. 6. Neuropathy. 7. Chronic pain syndrome on multiple pain medication regimen. 8. Chronic obstructive pulmonary disease without any exacerbation with a component of asthma. 9. Seizure disorder. PLAN: Patient was started on Pradaxa yesterday. Will continue this for treatment of her pulmonary embolism. Will plan to do a bilateral Doppler study in the morning to rule out lower extremity deep venous thrombosis. She will need to have an echocardiogram and followup at some point. It still appears to me that she has a regular rate but could be a multifocal atrial tachycardia but no obvious atrial fibrillation, there are notable P-waves. She is continued on cardiac telemetry. Will have her on oxygen. I will watch her today and will continue her Lasix in the morning or if she continues to show any worsening of her pulmonary function related to the previous fluid of yesterday, will continue Lasix as needed. I will continue to hold her Valium, Tramadol, Ambien , Nitro, and decrease lisinopril to 5 mg. Should she show any signs of benzodiazepine withdrawals, will utilize Ativan IV as needed. Will need to continue to monitor the patient closely for both continued hemodynamic stability and management of her polypharmacy. Hopefully will discharge tomorrow If she continues to be hemodynamically stable on Pradaxa and we will need closely clinical followup with both Dr. Simpson and Dr. Rain. Until discharge, we will continue to monitor closely and treat appropriately. #[id number] [facility]
[2017-12-27] MEDS: SODIUM CHLORIDE 0.9% (FLUSH) 10 ML SYG IV SCH (21:02)
[2017-12-27] MEDS: MONTELUKAST 10 MG TAB PO SCH (21:03)
[2017-12-27] MEDS: QUEtiapine FUMARATE 100 MG TAB PO SCH (21:05)
[2017-12-28] MEDS: PANTOPRAZOLE SODIUM TAB 40 MG PO SCH (06:23)
[2017-12-28] MEDS: DABIGATRAN ETEXILATE 75 MG CAP PO SCH ×2 (09:02→20:52)
[2017-12-28] MEDS: DULoxetine HCL 30 MG CAP PO SCH (09:02)
[2017-12-28] MEDS: TOPIRAMATE 25 MG TAB PO SCH ×3 (09:02→20:52)
[2017-12-28] MEDS: FERROUS SULFATE 325 MG TAB PO SCH (09:02)
[2017-12-28] MEDS: GABAPENTIN 300 MG CAP PO SCH ×2 (09:02→21:01)
[2017-12-28] MEDS: MORPHINE *IMMEDIATE RELEASE* 15 MG TAB PO SCH ×2 (09:03→21:37)
[2017-12-28] MEDS: AMITRIPTYLINE HCL 25 MG TAB PO SCH (09:03)
[2017-12-28] MEDS: SODIUM CHLORIDE 0.9% (FLUSH) 10 ML SYG IV SCH ×2 (09:12→21:01)
[2017-12-28] MEDS: LISINOPRIL 5 MG TAB PO SCH (09:14)
[2017-12-28] MEDS: REMOVE OLD PATCH TOP SCH (09:15)
[2017-12-28] MEDS: LEVALBUTEROL NEBS 1.25 MG/3 ML VIAL NEB SCH ×2 (09:36→16:25)
[2017-12-28] MEDS: FLUTICASONE/SALMETEROL 250/50 14 PUFF/17 GM INH INH SCH (09:36)
--- NOTE | 2017-12-28 10:35 | US ---
EXAM DESCRIPTION: Venous,Lower Extremity LT: ULTRASOUND. CLINICAL HISTORY: acute PE COMPARISON: Venous lower extremity right duplex ultrasound on the same visit. TECHNIQUE: Webster-scale and doppler sonographic evaluation of the deep venous system of the left lower extremity. FINDINGS: Doppler evaluation shows normal color flow and normal phasicity and augmentation of the left common femoral vein, deep femoral vein, femoral vein, popliteal vein, greater saphenous vein, peroneal, anterior and posterior tibial vein. The left lower extremity deep veins showed normal occlusion with transducer pressure. Webster-scale survey showed no echogenic thrombus within these veins. IMPRESSION: 1. Duplex ultrasound evaluation of the left lower extremity deep venous system showing no evidence of thrombosis. Electronically signed by: Derrick Carrasquillo MD 12/28/2017 10:34 AM CDT
--- NOTE | 2017-12-28 10:37 | US ---
EXAM DESCRIPTION: Venous,Lower Extremity RT: ULTRASOUND. CLINICAL HISTORY: acute PE COMPARISON: None Available. TECHNIQUE: Webster-scale and doppler sonographic evaluation of the deep venous system of the right lower extremity. FINDINGS: Doppler evaluation shows normal color flow and normal phasicity and augmentation of the right common femoral vein, deep femoral vein, femoral vein, popliteal vein, greater saphenous vein, peroneal, and posterior tibial vein. The right lower extremity deep veins showed normal occlusion with transducer pressure. Webster-scale survey showed no echogenic thrombus within these veins. IMPRESSION: 1. Duplex ultrasound evaluation of the right lower extremity deep venous system showing no evidence of thrombosis. Electronically signed by: Derrick Carrasquillo MD 12/28/2017 10:36 AM CDT
--- NOTE | 2017-12-28 13:26 | PN ---
SUPERVISING PHYSICIAN: Hemal Waters M.D. DATE: 12/28/17 SUBJECTIVE: The patient is resting in bed and just finished Doppler studies of her lower extremities, which were negative for any deep venous thrombosis. The patient this morning is quite sleepy and her blood pressure is noted to be low. It was noted that she still takes quite a bit of Seroquel at night and this tends to sedate her throughout the morning. I discussed with her again modifying her medication regimen to prevent sedation and provide for better blood pressure. She has no complaints of shortness of breath, chest pains and she remains afebrile. OBJECTIVE: VITAL SIGNS: Temperature 99.1. Pulse 128. Blood pressure 102/69. Respirations 18. Saturation 97% on nasal cannula at 2 liters. I&Os show positive balance of 1100 with 1600 in, 500 out. Weight 85.0 kg. CHEST: Clear to auscultation. HEART: Tachycardic rhythm, but regular rate. ABDOMEN: Soft, nontender. Positive bowel sounds. EXTREMITIES: No clubbing, cyanosis or edema. NEUROLOGIC: She was alert and oriented times three. LABORATORY: Chemistries show normal electrolytes. Potassium 4.6, BUN 15, creatinine 0.95. CBC shows a white count of 4,100 with stable hemoglobin 11.6 and hematocrit 35.1. Differential is without a left shift. RADIOLOGY: Bilateral lower extremity study for DVT per radiologic interpretation were without any findings to suggest deep venous thrombosis. ASSESSMENT: 1. Acute pulmonary embolism involving the right middle lobe pulmonary system without evidence of right heart strain as per on CT findings with the patient having been on Lovenox and Pradaxa and continues to be hemodynamically stable. 2. Persistent tachycardia with EKG showing a sinus tachycardia with regular rate, secondary to #1 and continuing to be hemodynamically stable although felt to be possibly exacerbated by some of her medications including Seroquel, Cymbalta. 3. History of congestive heart failure with no echocardiogram on admission for review, felt to be more of a systolic dysfunction, currently followed by Dr. Rain and on an ARACELY inhibitor, but not on a current beta aaron with no sign of exacerbation. 4. Gastroesophageal reflux disease. 5. Depression on multiple medications. 6. Neuropathy on gabapentin. 7. Chronic pain syndrome on multiple pain medication regimen. 8. Chronic obstructive pulmonary disease without any exacerbation with a noted component of asthma. 9. Seizure disorder. PLAN: The patient again continues to show AM hypotension, which I think is more due to her medication regimen including Seroquel and Cymbalta. In efforts to correct this and hopefully decrease her heart rate, we will hold her Seroquel tonight and decrease her Cymbalta to 60 mg daily. She also continues to be off Valium, Flexeril and scheduled tramadol and is currently having good pain control. She does remain on gabapentin and medications for seizure disorder and we will continue with those. Hopefully this will correct some of her underlying hypotension and we can discharge her tomorrow to have close clinical followup this Thursday with Dr. Simpson and Dr. Rain. Until discharge, we will continue to monitor the patient closely and treat appropriately. #[id number] [facility]
[2017-12-28] MEDS ORDERED: SODIUM CHLORIDE 0.9% 500ML 500 ML IVS ONE (18:50)
[2017-12-28] MEDS ORDERED: KCL 20MEQ/D5 1/2NS 1,000 ML IVS PRN (18:51)
--- NOTE | 2017-12-28 19:23 | RAD ---
EXAM DESCRIPTION: Chest,1 View CLINICAL HISTORY:67 years Female, cough Comparison: December 26, 2017 FINDINGS: No lung volumes with bibasilar subsegmental atelectasis or scarring. Additional patchy opacities may represent atelectasis or pneumonia. Cannot exclude small bilateral pleural effusions. Cardiac silhouette is unchanged. Electronically signed by: Tavo Noguera MD 12/28/2017 7:21 PM CDT
[2017-12-28] MEDS: IV SET AND CAP CHANGE INJ INJ SCH (19:43)
[2017-12-28] MEDS ORDERED: AZITHROMYCIN IV 500 MG VIAL IVPB ONE (19:44)
[2017-12-28] MEDS ORDERED: SODIUM CHLORIDE 0.9% 250ML 250 ML ONE (19:44)
[2017-12-28] MEDS ORDERED: cefTRIAXone SODIUM 1 GM VIAL ONE (19:44)
[2017-12-28] MEDS ORDERED: SODIUM CHL 0.9% 50ML MIN-BAG+ 50 ML IVPB ONE (19:44)
[2017-12-28] MEDS: cefTRIAXone SODIUM 1 GM in SODIUM CHL 0.9% 50ML MIN-BAG+ 50 ML IVPB SCH (19:49)
[2017-12-28] MEDS: MONTELUKAST 10 MG TAB PO SCH (20:53)
[2017-12-28] MEDS ORDERED: AZITHROMYCIN IV 500 MG in SODIUM CHLORIDE 0.9% 250ML 250 ML IVPB SCH (21:00)
[2017-12-28] MEDS ORDERED: traMADol HCL 50 MG TAB ONE (21:07)
[2017-12-29] MEDS: LEVALBUTEROL NEBS 1.25 MG/3 ML VIAL NEB SCH ×2 (00:54→08:36)
[2017-12-29 05:39] VITALS: TEMP 98.3
[2017-12-29] MEDS: PANTOPRAZOLE SODIUM TAB 40 MG PO SCH (06:13)
[2017-12-29] MEDS ORDERED: SODIUM CHL 0.9% 50ML MIN-BAG+ 50 ML IVPB ONE (08:08)
[2017-12-29] MEDS ORDERED: cefTRIAXone SODIUM 1 GM VIAL ONE (08:09)
[2017-12-29] MEDS: cefTRIAXone SODIUM 1 GM in SODIUM CHL 0.9% 50ML MIN-BAG+ 50 ML IVPB SCH (08:33)
[2017-12-29] MEDS: FLUTICASONE/SALMETEROL 250/50 14 PUFF/17 GM INH INH SCH (08:36)
[2017-12-29] MEDS: SODIUM CHLORIDE 0.9% (FLUSH) 10 ML SYG IV SCH (09:00)
[2017-12-29] MEDS ORDERED: DULoxetine HCL 30 MG CAP PO SCH (09:00)
[2017-12-29] MEDS: MORPHINE *IMMEDIATE RELEASE* 15 MG TAB PO SCH (09:06)
[2017-12-29] MEDS: DABIGATRAN ETEXILATE 75 MG CAP PO SCH (09:32)
[2017-12-29] MEDS: GABAPENTIN 300 MG CAP PO SCH (09:32)
[2017-12-29] MEDS: LISINOPRIL 5 MG TAB PO SCH (09:32)
[2017-12-29] MEDS: FERROUS SULFATE 325 MG TAB PO SCH (09:33)
[2017-12-29] MEDS: AMITRIPTYLINE HCL 25 MG TAB PO SCH (09:33)
[2017-12-29] MEDS: TOPIRAMATE 25 MG TAB PO SCH ×2 (09:33→15:42)
[2017-12-29] MEDS: REMOVE OLD PATCH TOP SCH (09:34)
[2017-12-29 11:48] VITALS: O2SAT 94
[2017-12-29] MEDS ORDERED: SODIUM CHLORIDE 0.9% (FLUSH) 10 ML SYG IV SCH (12:00)
[2017-12-29 12:18] VITALS: BP 111/67
--- NOTE | 2017-12-29 22:23 | DS ---
SUPERVISING PHYSICIAN: Hemal Waters M.D. ADMISSION DIAGNOSIS: 1. Syncope with loss of consciousness for 10 to 30 seconds. 2. Atrial fibrillation with controlled ventricular rate of 90 to 112 and no history of atrial fibrillation. 3. Congestive heart failure with no current echocardiogram and unknown etiology with crm campaign manager being Dr. Rain in [place] with the patient being on Flaco inhibitor but no beta aaron. 4. Gastroesophageal reflux disease. 5. Depression. 6. Neuropathy. 7. Chronic pain syndrome. 8. Chronic obstructive pulmonary disease. 9. Asthma. 10. Seizure disorder. DISCHARGE DIAGNOSIS: 1. Acute pulmonary embolism involving the right middle lobe pulmonary system without any evidence of right heart strain as per noted on CT findings with the patient having been on Lovenox at admission and then transitioned to Pradaxa and continued to be hemodynamically stable. 2. Persistent tachycardia with EKG showing a sinus tachycardia with regular rate, secondary to #1 with being hemodynamically stable with some exacerbation felt to be secondary to her Seroquel and Cymbalta. 3. History of congestive heart failure with no echocardiogram on admission for review, felt to be more of both diastolic and systolic dysfunction, currently followed by Dr. Rain on an FLACO inhibitor, not on a current beta aaron with no sign of exacerbation. 4. Chronic obstructive pulmonary disease with exacerbation with concerns for developing community acquired pneumonia responding to antibiotics and fluid with normal lactic acid and no leukocytosis at discharge. 5. Gastroesophageal reflux disease. 6. Depression on multiple medications. 7. Neuropathy on gabapentin. 8. Chronic pain syndrome, polypharmacy regimen resulting in some difficulty maintaining blood pressure and likely contributing to some of her underlying tachycardia showing improvement with medication regimen modification. 9. Seizure disorder with no seizure activity while in the hospital. REASON FOR HOSPITALIZATION: Ms. Wilson is a 67 year-old female that presented to the Emergency Department on 12/25/17 after she had fallen and sustained an injury to her right knee at home. She had a syncopal episode that was witnessed by her . She apparently lost consciousness for approximately 10 to 30 seconds but did not hit her head during the fall. She had no seizure activity at that time. She had no incontinence of bowel or bladder. She was very weak. It was noted that 2 to 3 weeks previously she had the same near syncopal episodes several times but had never really passed out. She did have some substernal chest pain but no diaphoresis on admission and some shortness of breath. She complained of some right knee pain after a fall. She had no difficulty ambulating but does have multiple underlying co-morbidities. She has congestive heart failure which she is followed by Dr. Rain. She has never been diagnosed that she knows of with atrial fibrillation, but it was noted that on initial assessment it appeared that she might be in atrial fibrillation with controlled ventricular rate at 90. Vital signs had shown to be stable initially with blood pressure 113/81. She was afebrile. Cardiac enzymes initially on admission were negative. Urinalysis was negative. CT was without any acute findings. Right knee x-ray showed just a trace of suprapatellar joint effusion with severe changes of osteoarthritis but no evidence of acute fracture, dislocation or obstructive lesions. Due to her syncopal episode as well as concerns for new onset of atrial fibrillation, the patient was admitted to the hospital and initially started on Pradaxa in the Emergency Room. She was admitted in stable condition. LABORATORY STUDIES: CBC on admission was 4,200, at discharge was 4,000. She was showing anemia with hemoglobin stable at 10.8 and hematocrit 32.4 with a normocytic/hyperchromic presentation with a platelet count of 152,000 at discharge. Differential never did show a left shift, remained stable. Coagulation studies showed initially on admission a PT of 10, PTT 30.7. After admission, she had a D-dimer that was elevated at 1.91. Chemistries on admission showed sodium 134, potassium 4.1, BUN 16, creatinine 0.98, glucose 127. Liver functions all showed to be within normal limits. She had 3 sets of troponins that were less than 0.02. Lipid panel showed elevated triglycerides at 161 with cholesterol 136, LDL was 81, HDL was 36. TSH was normal at 0.81. Magnesium showed to be normal at 2.0. Electrolytes remained within normal limits and at discharge was showing normal electrolytes, BUN15, creatinine 0.95. She did have a slightly elevated BNP of 233. Urinalysis showed just a trace of leukocyte esterase, otherwise within normal limits. She had a urine drug screen that showed positive for barbiturates and Benzodiazepines, and negative for other substances tested. MICROBIOLOGY: Blood cultures were negative at discharge. RADIOLOGY: Initially in the Emergency Department she had a CT of the head without contrast without any acute findings. She also had a right knee x-ray that showed no acute findings other than a small amount of suprapatellar joint effusion. With the patient complaining of shortness of breath and some chest pains, a D-dimer was completed which did show it was elevated, therefore CT chest was done with contrast to rule out PE and per radiology interpretation there was note of pulmonary embolism within the right medial lobe, lobar arterial branch but no right heart strain. There was note of cardiomegaly and left basilar consolidation which could represent atelectasis or less likely pneumonia aspiration. She had some mild pulmonary edema and trace of bilateral pleural effusions. There was some note of intrahepatic biliary duct dilation but normal liver functions. She had a lower Doppler study bilateral which were without any findings for DVT per radiology interpretation. On 12/28/17, she continued to show some mild hypotension with concerns for possible pneumonia. A chest x-ray was completed and on 12/28/17 chest x-ray per radiology interpretation of 2 view chest showed low lung volumes with bibasilar subsegmental atelectasis or scarring. There were additional patchy opacities which may represent atelectasis or pneumonia, cannot exclude bilateral pleural effusions. The cardiac silhouette appeared to be unchanged. HOSPITAL COURSE: Ms. Wilson was admitted on 12/25/17 initially for a syncopal episode which was thought related to new onset of atrial fibrillation. EKG after admission looked to me as it was a multi atrial tachycardia. Given that the patient was having some chest pains but negative cardiac workup and with shortness of breath and tachycardia, a D-dimer was completed which was elevated and after that a CT of the chest indicated she had a pulmonary embolism. She had already been started on Pradaxa in the E. R. with concerns for new onset of atrial fibrillation. Repeat EKG again showed just sinus tachycardia with no obvious atrial fibrillation. She did have some continued rapid heart rates and some episodes of low blood pressures with some positive tilt vital signs at times with systolics in the 70s on the lowest, but averaging in the mid 90s with heart rate between 110 and 124. She was given some fluid challenges because it was felt that she may be a little dehydrated, and some hypovolemic state and did show improvement. She also was on some issues with polypharmacy with multiple medications, including Cymbalta, Seroquel , morphine, Valium, Flexeril and Tramadol. After multiple attempts to modify her regimen, stopping the Tramadol, Flexeril, Valium, Nitro patch, decreasing the Lisinopril and stopping Seroquel, the patient's blood pressure stabilized and her heart rate had improved. She did show to be mildly febrile but again it was felt that she had started to develop some atelectasis and possibly pneumonia as she was not doing very good with deep breathing exercises and not being real active during hospitalization. Given the patient's underlying co- morbidities at that point she was started on antibiotic coverage with azithromycin and Ceftriaxone which she did show good results with. After medication regimen had been modified and she was showing to be stable on the day of discharge, blood pressure was showing to be 96/69 sitting, lying down blood pressure was 111/67. Heart rate was in the 110s to 115s. The patient was without any chest pains, without any shortness of breath. She was maintaining O2 saturations at room air on 94% or better and was much more alert , and was able to cooperate with treatment plan. It was felt that the patient had clinically stabilized well enough to be discharged on Pradaxa and current modification of her medication regimen to followup with Dr. Simpson on Thursday as well as Dr. Rain for further management of her medication regimen and the newly diagnosed pulmonary embolism. PLAN: Ms. Wilson was discharged on 12/29/17 with instructions to followup with Dr. Simpson and Dr. Rain on Thursday as scheduled. She had arrangements for home health with [facility] with home health as well as for physical therapy. She will need an echocardiogram if this has not been completed at some point. She was to resume her medications as instructed as listed below with modifications to the regimen and paying close attention to those new medication changes. She was encouraged to take position changes slowly and allow her time to restabilize to prevent syncopal episodes or further falls, and given warnings that she was at risk for bleeding on Pradaxa. She had no syncopal episodes while in the hospital and was showing to be stable. She was told to return to the hospital should she have any concerning symptoms. Diet at discharge was to resume her usual diet. Activity is to ambulate only with a walker as per Physical Therapy and increase as tolerated. Medications at discharge included the followin. Azithromycin 250 mg daily. 2. Cefdinir 300 mg twice daily. 3. Pradaxa 150 mg twice daily. 4. Cymbalta 60 mg daily. 5. Lisinopril 5 mg daily. 6. Xopenex nebulizers 1.25 mg every 8 hours as needed. 7. Valium 10 mg orally every 12 hours as needed for anxiety. She was to take her normal tablets and half them or take 10 mg tablets, whatever she had on hand. No new prescription was provided in regards to the Valium. 8. Seroquel 300 mg at bedtime. 9. Nexium 40 mg daily. 10. Multivitamin daily. 11. Nitrostat 0.4 mg subcue every 5 minutes times 3 as needed for chest pains. 12. Lasix 20 mg daily. 13. Topiramate 100 mg 3 times a day. 14. Tylenol 650 mg every 6 hours as needed. 15. Gabapentin 600 mg twice daily. 16. Feosol tabs 325 mg daily. 17. Advair 250/50 Diskus 1 puff inhaled daily. 18. [place] 10/325 one tablet as needed every 4 hours for pain. 19. Promethazine/HCl 25 mg tablet as needed every 4 hours. 20. Singulair 10 mg daily. 21. Albuterol hand inhaler 2 puffs inhaled daily. 22. Butalbital/Acetaminophen/caffeine 50-300-40 mg 1 orally 3 times a day as needed for headaches. 23. Amitriptyline 50 mg daily. 24. Ranexa 1,000 mg twice daily. 25. Morphine sulfate immediate release 15 mg twice daily. She was to stop the following medications: 1. Ambien 10 mg at bedtime. 2. Cymbalta 60 mg twice daily. 3. Zanaflex 4 mg twice daily as needed. 4. Tramadol 50 mg twice daily. 5. Compazine 5 mg every 8 hours as needed. 6. Lisinopril 10 mg daily. 7. Flexeril 10 mg 3 times a day. 8. Nitro patch 0.4 mg daily. 9. Doxycycline 100 mg twice daily. 10. Diazepam 20 mg twice daily. The patient was discharged in stable condition and improved. #[id number] [facility]
== END 2017-12-29 16:20 | disposition home health service (06) | DRG 175 ==
LOC: ER 13:15 → MS 17:50 → OBSVTOIN 12-27 10:37
PROVIDERS: ADMIT Nurse Practitioner Acute Care; ATTEND Nurse Practitioner Acute Care
DX: I26.99 Other pulmonary embolism without acute cor pulmonale (principal); J18.9 Pneumonia, unspecified organism; I50.42 Chronic combined systolic (congestive) and diastolic (congestive) heart failure; J44.0 Chronic obstructive pulmonary disease with (acute) lower respiratory infection; J98.11 Atelectasis; I48.91 Unspecified atrial fibrillation; R29.6 Repeated falls; K21.9 Gastro-esophageal reflux disease without esophagitis; F32.9 Major depressive disorder, single episode, unspecified; G62.9 Polyneuropathy, unspecified; G89.4 Chronic pain syndrome; G40.909 Epilepsy, unspecified, not intractable, without status epilepticus; T43.595A Adverse effect of other antipsychotics and neuroleptics, initial encounter; T43.215A Adverse effect of selective serotonin and norepinephrine reuptake inhibitors, initial encounter; E86.0 Dehydration; E86.1 Hypovolemia; M17.11 Unilateral primary osteoarthritis, right knee; R00.0 Tachycardia, unspecified; S89.91XA Unspecified injury of right lower leg, initial encounter; W19.XXXA Unspecified fall, initial encounter; I95.9 Hypotension, unspecified; G47.00 Insomnia, unspecified; Z66 Do not resuscitate; Z79.891 Long term (current) use of opiate analgesic; Z85.3 Personal history of malignant neoplasm of breast; Z79.899 Other long term (current) drug therapy; Z98.84 Bariatric surgery status; Z96.643 Presence of artificial hip joint, bilateral; Z88.6 Allergy status to analgesic agent; Z88.5 Allergy status to narcotic agent; Z88.0 Allergy status to penicillin; Z88.2 Allergy status to sulfonamides; Y93.9 Activity, unspecified; Y92.009 Unspecified place in unspecified non-institutional (private) residence as the place of occurrence of the external cause

== ENCOUNTER 2017-12-31 12:18 | Emergency (ER) | payer MEDICARE, MEDICAID ==
[2017-12-31] MEDS ORDERED: SODIUM CHLORIDE 0.9% 500ML 500 ML IVS ONE (13:07)
--- NOTE | 2017-12-31 13:07 | ED.PDOC ---
History of Present Illness - General Chief Complaint: Cardiovascular Problem Stated Complaint: dizzy;low blood pressure Time Seen by Provider: 12/31/17 13:05 Source: patient Exam Limitations: no limitations - History of Present Illness Initial Comments: Jaqueline Waddell 67 y/o female recnetly diagnosed with Afib and hospitalized last week and discharge 2 days ago stated that after taking her medications this morning felt dizzy and feel so sleepy so she sat down then called EMS. She is unable to recall her medications noted on her list that she takes multiple medications.Had also head CT for her dizziness and syncopal episode last week no abnormalities noted.Has appointment with hand deicer element winder tomorrow 01 january 2018.Previous visits reviewed not blood pressure with systolic 90's.patient already on pradaxa. Timing/Duration: 1-3 hours Severity: moderate Improving Factors: rest Worsening Factors: nothing Associated Symptoms: shortness of breath Allergies/Adverse Reactions: Allergies Aspirin Allergy (Verified 12/25/17 18:26) Codeine Allergy (Verified 12/25/17 18:26) Penicillins Allergy (Verified 12/25/17 18:26) Sulfa Drugs Allergy (Verified 12/25/17 18:26) Home Medications: Ambulatory Orders Esomeprazole Magnesium [Nexium] 40 mg PO DAILY 10/24/12 Furosemide [Lasix] 20 mg PO DAILY 10/24/12 Multiple Vitamin [Multivitamins] 1 cap PO DAILY 10/24/12 Nitroglycerin [Nitrostat] 0.4 mg SL .Q5MIN X3 PRN 10/24/12 Quetiapine Fumarate [Seroquel] 300 mg PO HS 10/24/12 Topiramate 100 mg PO TID 10/25/12 Acetaminophen [Tylenol] 650 mg PO Q6H PRN 04/21/14 Ferrous Sulfate [Feosol Tab] 325 mg PO DAILY 04/21/14 Fluticasone/Salmeterol 250/50 [Advair 250/50 Diskus] 1 puff INH DAILY 04/21/14 Gabapentin 600 mg PO BID 04/21/14 Albuterol Inhaler [Ventolin Hfa Inhaler] 2 puff INH QID 04/01/16 HYDROcodone 10MG/APAP 325MG [[place] 10/325] 1 tab PO Q4H PRN 04/01/16 Montelukast [Singulair] 10 mg PO DAILY 04/01/16 Promethazine HCl 25 mg PO PRN PRN 04/01/16 Edvrtkctbn-Gtnhvxvgsxnht-Gyydg [Butalbital/Acetaminophen/ 50-300-40 mg] 1 cap PO TID PRN 12/25/17 Amitriptyline HCl 50 mg PO DAILY 12/26/17 Morphine Sulfate 15 mg PO BID 12/26/17 Ranolazine [Ranexa] 1,000 mg PO BID 12/26/17 Azithromycin Tab [Zithromax Tab] 250 mg PO DAILY #4 tab 12/29/17 Cefdinir [Omnicef] 300 mg PO BID #20 cap 12/29/17 DULoxetine HCL [Cymbalta] 60 mg PO DAILY cap 12/29/17 Dabigatran Etexilate [Pradaxa] 150 mg PO BID #60 cap 12/29/17 Diazepam [Valium] 10 mg PO Q12HR PRN #10 tab 12/29/17 Levalbuterol Nebs [Xopenex NEBS] 1.25 mg NEB RTQ8 PRN #60 vial 12/29/17 Lisinopril 5 mg PO DAILY #30 tab 12/29/17 Review of Systems - Review of Systems Constitutional: States: no symptoms reported EENTM: States: no symptoms reported Respiratory: States: see HPI Cardiology: States: see HPI Gastrointestinal/Abdominal: States: no symptoms reported Genitourinary: States: no symptoms reported Musculoskeletal: States: back pain - chronic, joint pain - right knee chronic pain Skin: States: no symptoms reported Neurological: States: no symptoms reported Past Medical History (General) - Patient Medical History Hx Seizures: Yes Hx Stroke: No Hx Dementia: Yes Hx Asthma: Yes Hx of COPD: Yes Hx Cardiac Disorders: Yes Hx Congestive Heart Failure: Yes Hx Pacemaker: No Hx Hypertension: Yes Hx Thyroid Disease: No Hx Diabetes: No Hx Gastroesophageal Reflux: Yes Hx Renal Disease: No Hx Cancer: No Hx of HIV: No Hx Hepatitis C: No Hx MRSA: No Surgical History: cholecystectomy, gastric bypass, other - gastric bypass;egd; colonoscopy;both hips - Vaccination History Hx Tetanus, Diphtheria Vaccination: No Hx Influenza Vaccination: No Hx Pneumococcal Vaccination: No - Social History Hx Tobacco Use: No Hx Chewing Tobacco Use: No Hx Alcohol Use: No Hx Substance Use: No Hx Substance Use Treatment: No Hx Depression: No Hx Physical Abuse: No Hx Emotional Abuse: No Hx Suspected Abuse: No - Female History Patient : No Family Medical History - Family History Grandparents Family History: Unknown Hx Family Hypertension: Yes - parents Hx Cardiac Disease: Yes - parents Hx Family Cancer: Yes - dad-mesothelioma Physical Exam - Physical Exam General Appearance: Alert, Comfortable, No apparent distress Eye Exam: bilateral normal Ears, Nose, Throat: hearing grossly normal, normal ENT inspection, normal pharynx Neck: non-tender, full range of motion, supple Respiratory: chest non-tender, no respiratory distress, no accessory muscle use , wheezing - mild Cardiovascular/Chest: normal peripheral pulses, no gallop, no murmur, irregularly irregular - HR 122 Peripheral Pulses: radial,right: 1+, radial,left: 1+ Gastrointestinal/Abdominal: normal bowel sounds, non tender, soft, no organomegaly Back Exam: normal inspection, no CVA tenderness, no vertebral tenderness Extremity: non-tender, no pedal edema, no calf tenderness Neurologic: no motor/sensory deficits, oriented x 3 Skin Exam: normal color, warm/dry Lymphatic: no adenopathy Progress - Progress Progress: 12/31/17 14:39 Vital Signs - 8 hr 12/31/17 12/31/17 12:18 12:56 Temperature 98.2 F Pulse Rate [ 124 H 127 H Apical] Respiratory 16 14 Rate Blood Pressure 90/62 101/69 [Right Arm] O2 Sat by Pulse 98 97 Oximetry - Results/Orders Results/Orders: 12/31/17 13:45 EKG STAT Laboratory Results - last 24 hr 12/31/17 12/31/17 12/31/17 12:33 13:31 13:31 WBC 3.8 L RBC 4.02 L Hgb 12.7 Hct 38.2 MCV 94.9 MCH 31.5 H MCHC 33.1 RDW 14.3 Plt Count 198 MPV 8.5 Absolute Neuts (auto) 2.10 Absolute Lymphs (auto) 1.20 Absolute Monos (auto) 0.20 Absolute Eos (auto) 0.20 Absolute Basos (auto) 0.10 Neutrophils % 56.0 Lymphocytes % 32.0 Monocytes % 4.8 Eosinophils % 5.7 H Basophils % 1.5 PT 10.6 INR 1.06 PTT (SP) 36.3 H Sodium 138 Potassium 4.2 Chloride 106 Carbon Dioxide 24 Anion Gap 12.2 BUN 13 Creatinine 0.80 BUN/Creatinine Ratio 16.3 Random Glucose 101 Serum Osmolality 275.9 Lactic Acid 1.5 Calcium 8.9 Magnesium 2.1 Total Bilirubin 0.4 Direct Bilirubin < 0.1 Indirect Bilirubin 0.3 AST 16 ALT 19 Alkaline Phosphatase 134 H Creatine Kinase 36 CK-MB (CK-2) 1.0 CK-MB (CK-2) % Not Reportable Troponin I < 0.02 B-Natriuretic Peptide 348.0 H* Serum Total Protein 6.8 Albumin 3.3 Urine Color Yellow Urine Appearance Clear Urine pH 6.0 Ur Specific [place] 1.015 Urine Protein Negative Urine Glucose (UA) Negative Urine Ketones Negative Urine Blood Negative Urine Nitrite Negative Urine Bilirubin Negative Urine Urobilinogen 0.2 Ur Leukocyte Esterase Negative Urine RBC 0 Urine WBC 0 Ur Epithelial Cells 0 Urine Bacteria 0 - EKG/XRAY/CT EKG: Atrial, Flutter Comments: HR-125 Departure - Departure Clinical Impression: Hypotension due to drugs, Atrial fibrillation and flutter Time of Disposition: 14:34 Disposition: Discharge to Home or Self Care Departure Forms: ED Discharge - Pt. Copy, Patient Portal Self Enrollment Instructions: Atrial Fibrillation, Atrial Flutter, Atrial Fibrillation (DC), Atrial Flutter (DC) Referrals: Sachin Simpson MD [Primary Care Provider] - 1-2 Weeks Home Medications: Ambulatory Orders Esomeprazole Magnesium [Nexium] 40 mg PO DAILY 10/24/12 Furosemide [Lasix] 20 mg PO DAILY 10/24/12 Multiple Vitamin [Multivitamins] 1 cap PO DAILY 10/24/12 Nitroglycerin [Nitrostat] 0.4 mg SL .Q5MIN X3 PRN 10/24/12 Quetiapine Fumarate [Seroquel] 300 mg PO HS 10/24/12 Topiramate 100 mg PO TID 10/25/12 Acetaminophen [Tylenol] 650 mg PO Q6H PRN 04/21/14 Ferrous Sulfate [Feosol Tab] 325 mg PO DAILY 04/21/14 Fluticasone/Salmeterol 250/50 [Advair 250/50 Diskus] 1 puff INH DAILY 04/21/14 Gabapentin 600 mg PO BID 04/21/14 Albuterol Inhaler [Ventolin Hfa Inhaler] 2 puff INH QID 04/01/16 HYDROcodone 10MG/APAP 325MG [[place] 10/325] 1 tab PO Q4H PRN 04/01/16 Montelukast [Singulair] 10 mg PO DAILY 04/01/16 Promethazine HCl 25 mg PO PRN PRN 04/01/16 Iwsvmfisdi-Ewqdmqydxzbnz-Ioqyi [Butalbital/Acetaminophen/ 50-300-40 mg] 1 cap PO TID PRN 12/25/17 Amitriptyline HCl 50 mg PO DAILY 12/26/17 Morphine Sulfate 15 mg PO BID 12/26/17 Ranolazine [Ranexa] 1,000 mg PO BID 12/26/17 Azithromycin Tab [Zithromax Tab] 250 mg PO DAILY #4 tab 12/29/17 Cefdinir [Omnicef] 300 mg PO BID #20 cap 12/29/17 DULoxetine HCL [Cymbalta] 60 mg PO DAILY cap 12/29/17 Dabigatran Etexilate [Pradaxa] 150 mg PO BID #60 cap 12/29/17 Diazepam [Valium] 10 mg PO Q12HR PRN #10 tab 12/29/17 Levalbuterol Nebs [Xopenex NEBS] 1.25 mg NEB RTQ8 PRN #60 vial 12/29/17 Lisinopril 5 mg PO DAILY #30 tab 12/29/17 Additional Instructions: Keep appointment with your hand deicer element winder(director heart) in am 01 January 2018; Return to ER as needed ; Do not take your RANEXA;Bring all current medications to let your director heart review it.Continue with the rest of your home medications
[2017-12-31] MEDS ORDERED: SOTALOL 80 MG TAB PO ONE (13:58)
[2017-12-31 14:56] VITALS: BP 100/75; TEMP 98; O2SAT 99
== END 2017-12-31 14:58 | disposition home or self-care (01) ==
LOC: ER 12:18
DX: I95.2 Hypotension due to drugs (principal); I48.91 Unspecified atrial fibrillation; I48.92 Unspecified atrial flutter; I11.0 Hypertensive heart disease with heart failure; I50.9 Heart failure, unspecified; J44.9 Chronic obstructive pulmonary disease, unspecified; J45.909 Unspecified asthma, uncomplicated; F03.90 Unspecified dementia, unspecified severity, without behavioral disturbance, psychotic disturbance, mood disturbance, and anxiety; Z88.2 Allergy status to sulfonamides; Z88.0 Allergy status to penicillin; Z79.899 Other long term (current) drug therapy; Z98.84 Bariatric surgery status
CPT/HCPCS: 36415; 80048; 80076; 81001; 82550; 82553; 83605; 83880; 84484; 85025; 85610; 85730; 93005; J7040

== ENCOUNTER 2018-03-18 11:29 | Emergency (ER) | payer MEDICARE, MEDICAID ==
[2018-03-18] MEDS ORDERED: SODIUM CHLORIDE 0.9% 1000ML 1,000 ML IVS ONE (11:43)
[2018-03-18] MEDS ORDERED: IPRATROPIUM/ALBUTEROL 3 ML VIAL NEB ONE (12:22)
--- NOTE | 2018-03-18 12:22 | CT ---
EXAM DESCRIPTION: Head CLINICAL HISTORY: fall, drowsy hypotension COMPARISON: CT head dated 12/25/2017. TECHNIQUE: Contiguous axial images through the head were obtained without intravenous contrast administration. Sagittal and coronal reconstructions were reviewed. FINDINGS: No evidence of acute major vascular territorial infarct or intraparenchymal hemorrhage. No intra-axial or extra-axial fluid collections are identified. The ventricles and cisterns appear normal in caliber. The sella and suprasellar regions appear normal. The structures of the posterior fossa are intact. The globes are intact bilaterally. The visualized paranasal sinuses and mastoid air cells are well-aerated. Review of the bones demonstrates no gross instability. IMPRESSION: No CT evidence of acute intracranial process. This exam was performed according to our departmental dose-optimization program, which includes automated exposure control, adjustment of the mA and/or kV according to patient size and/or use of iterative reconstruction technique. Electronically signed by: Guerda Velasquez MD 03/18/2018 12:20 PM CDT
--- NOTE | 2018-03-18 12:23 | CT ---
EXAM DESCRIPTION: Cervical Spine CLINICAL HISTORY: fall, drowsy hypotension COMPARISON: None Available. TECHNIQUE: Cervical CT is performed with thin-section axial imaging. MPRs are created and reviewed as well. FINDINGS: The craniocervical junction is intact. The odontoid process is in good alignment with the lateral masses of C2. The vertebral body heights are well-maintained with no acute compression deformity. Multilevel degenerative disc disease is noted, worse at C5-C6 level. There is resultant moderate bilateral neural foraminal narrowing at this level. No evidence of subluxation or spondylolisthesis. The visualized prevertebral and paravertebral soft tissues appear normal. IMPRESSION: No acute traumatic abnormality is noted in the cervical spine. This exam was performed according to our departmental dose-optimization program, which includes automated exposure control, adjustment of the mA and/or kV according to patient size and/or use of iterative reconstruction technique. Electronically signed by: Guerda Velasquez MD 03/18/2018 12:22 PM CDT
--- NOTE | 2018-03-18 12:26 | RAD ---
EXAM DESCRIPTION: Pelvis CLINICAL HISTORY: 67 years Female, fall, hypotension COMPARISON: None. FINDINGS: A single view of the pelvis demonstrates a left hip replacement and prior right hip internal fixation with compression screw and intramedullary antonio. The entirety of the left iliac crest is not imaged but no evidence of superior or inferior pubic ramus fracture or hip dislocation is seen. The bony pelvis is osteopenic but otherwise normal in appearance. IMPRESSION: No acute injury noted. Electronically signed by: Romeo Grimes MD 03/18/2018 12:24 PM CDT
--- NOTE | 2018-03-18 12:27 | RAD ---
EXAM DESCRIPTION: Chest,1 View CLINICAL HISTORY: 67 years Female, fall, hypotension COMPARISON: December 28, 2017 TECHNIQUE: AP portable chest. FINDINGS: A single view of the chest demonstrates calcified tortuous aorta. Mild cardiomegaly and borderline or mild vascular prominence is present and more prominent than seen in December 28, 2017. Compensated or borderline vascular congestion is suspected. A small left pleural effusion is less prominent than previously seen. The right lung is essentially clear. No pneumothorax or hemothorax is seen. IMPRESSION: No acute injury of the chest noted. Cardiac silhouette and vascularity upper range of normal. Electronically signed by: Romeo Grimes MD 03/18/2018 12:26 PM CDT
[2018-03-18] MEDS ORDERED: NALOXONE HCL INJ 0.4 MG/ML VIAL ONE (12:29)
[2018-03-18] MEDS ORDERED: NALOXONE HCL INJ 0.4 MG/ML VIAL IV ONE (12:30)
--- NOTE | 2018-03-18 12:33 | RAD ---
EXAM DESCRIPTION: Lumbar Spine 3 Views CLINICAL HISTORY: fall, hypotension COMPARISON: None Available. TECHNIQUE: Three views lumbar spine. FINDINGS: Lumbar spine is normally aligned. Bony structures are markedly osteopenic. There is mild degenerative spondylolisthesis of L4 on L5. This is likely on a degenerative basis and the possibility of an element of spinal stenosis at the L4-5 level should be considered. Is minimal impaction without loss of vertebral height at the L2 level or is very mild anterior wedging and superior endplate impaction at the L1 level with approximate 20% loss of height. These findings represent age indeterminate compression deformities. No evidence of retropulsed bone is seen. Aortic calcification without aneurysm is noted. Also noted is mild central cupping of the superior endplate at L4, consistent with minimal central impaction of the superior endplate, again age indeterminate. IMPRESSION: 1. Marked osteopenia of the lumbar spine with mild grade 1 degenerative spondylolisthesis L4 on L5. 2. Mild superior endplate L1 compression deformity and minimal impaction of the superior endplate of L2 without loss of height and slight cupping of the superior endplate of L4. All of these represent changes consistent with minimal compression deformity that is age indeterminate. If the patient is symptomatic and has persistent or new back pain post trauma, a follow-up CT or MR I to evaluate for acute or subacute mild compression deformities would be a consideration. 3. No malalignment or compromise of the spinal canal noted. An element of stenosis at the L4-5 level related to the degenerative spondylolisthesis may be present. Electronically signed by: Romeo Grimes MD 03/18/2018 12:31 PM CDT
[2018-03-18] MEDS ORDERED: FLUMAZENIL 0.1 MG/ML VIAL ONE (12:39)
[2018-03-18] MEDS ORDERED: FLUMAZENIL 0.1 MG/ML VIAL IV ONE ×3 (12:43→14:41)
[2018-03-18] MEDS ORDERED: DEXTROSE 5% 250ML 250 ML ONE (14:49)
[2018-03-18] MEDS ORDERED: EPINEPHrine HCL AMP 1 MG/ML AMP ONE (14:50)
[2018-03-18] MEDS ORDERED: cefTRIAXone SODIUM 1 GM in SODIUM CHL 0.9% 50ML MIN-BAG+ 50 ML IVPB ONE (14:54)
[2018-03-18] MEDS ORDERED: EPINEPHrine HCL MULTI-DOSE 5 MG in DEXTROSE 5% 250ML 250 ML IV ONE (14:55)
[2018-03-18] MEDS ORDERED: SODIUM CHL 0.9% 50ML MIN-BAG+ 50 ML IVPB ONE (15:06)
[2018-03-18] MEDS ORDERED: cefTRIAXone SODIUM 1 GM VIAL ONE (15:06)
--- NOTE | 2018-03-18 17:58 | ED.PDOC ---
History of Present Illness - General Chief Complaint: General Stated Complaint: fall last night, lethargic, hypotension Time Seen by Provider: 03/18/18 11:42 Source: patient Exam Limitations: no limitations - History of Present Illness Initial Comments: The patient is a 67-year-old female presenting to the emergency room secondary to mild to moderate lethargy this morning. The patient apparently tripped and fell backwards over a new puppy last night and hit the back of her head. She went to bed and this morning woke up with a significant headache. She did take several of her pain medications. The patient has been more lethargic than normal so she was brought in by family. She is arousable to voice. Blood pressures are markedly low in the 70s over 40s range and the heart rate is low in the mid 40s. She does have a history of significant long- standing borderline hypotension with multiple recorded episodes of systolic blood pressures in the high 80s however her heart rates are normally in the high 80s to 90s as well. She has seen Dr. rain in the past but did miss an appointment with him last week. She apparently has some history of congestive heart failure of uncertain cause. She was also diagnosed with a pulmonary emboli back in December and has been on Pradaxa since that time. No fevers and no evidence of any sepsis. She has had multiple syncopal episodes in the past. She was previously on several hypertension medications but has been taken off of them over the last year. There was some question of atrial fibrillation at some point but she does not appear to be in atrial fibrillation currently. She is currently in a sinus bradycardia. No chest pain and no shortness of breath. She is not hypoxic. No significant JVD. The patient does take multiple sedating medications for her psychiatric issues as well as her chronic pain. it was initially thought that the patient had possibly accidentally overdosed on a combination of multiple of her medications. She did not improve with a dose of Narcan. She did improve somewhat with several small doses of flumazenil. This did bring the heart rate up about 5 points in the blood pressure up about 5-10 points as well. She did wake up a little better with this as well. This is the extent of the benefit of it however. the patient does report some mild lateral neck pain from the fall as well as some diffuse low back pain. Timing/Duration: unsure Severity: severe Improving Factors: nothing Worsening Factors: nothing Associated Symptoms: headaches, loss of appetite, malaise Allergies/Adverse Reactions: Allergies Aspirin Allergy (Verified 12/25/17 18:26) Codeine Allergy (Verified 12/25/17 18:26) Penicillins Allergy (Verified 12/25/17 18:26) Sulfa Drugs Allergy (Verified 12/25/17 18:26) Home Medications: Ambulatory Orders Esomeprazole Magnesium [Nexium] 40 mg PO DAILY 10/24/12 Furosemide [Lasix] 20 mg PO DAILY 10/24/12 Multiple Vitamin [Multivitamins] 1 cap PO DAILY 10/24/12 Nitroglycerin [Nitrostat] 0.4 mg SL .Q5MIN X3 PRN 10/24/12 Topiramate 100 mg PO TID 10/25/12 Acetaminophen [Tylenol] 650 mg PO Q6H PRN 04/21/14 Ferrous Sulfate [Feosol Tab] 325 mg PO DAILY 04/21/14 Fluticasone/Salmeterol 250/50 [Advair 250/50 Diskus] 1 puff INH DAILY 04/21/14 Gabapentin 600 mg PO BID 04/21/14 Albuterol Inhaler [Ventolin Hfa Inhaler] 2 puff INH QID 04/01/16 HYDROcodone 10MG/APAP 325MG [[place] 10/325] 1 tab PO Q4H PRN 04/01/16 Montelukast [Singulair] 10 mg PO DAILY 04/01/16 Promethazine HCl 25 mg PO PRN PRN 04/01/16 Qktykntwei-Maaylsychchpg-Hgrpo [Butalbital/Acetaminophen/ 50-300-40 mg] 1 cap PO TID PRN 12/25/17 Amitriptyline HCl 50 mg PO DAILY 12/26/17 Dabigatran Etexilate [Pradaxa] 150 mg PO BID #60 cap 12/29/17 Albuterol Sulfate Nebs [Proventil Nebs] 2.5 mg INH Q4H PRN 03/18/18 Calcium Carbonate [Calcium] 1,500 mg PO BID 03/18/18 Cholecalciferol [Vitamin D] 400 unit PO DAILY 03/18/18 Diazepam [Valium] 20 mg PO BID 03/18/18 Escitalopram [Lexapro] 10 mg PO DAILY 03/18/18 Loratadine [Claritin] 10 mg PO PRN 03/18/18 Lorenzo Tears W/Lubricant Eye Dr 2 drop BOTH_EYES BID 03/18/18 Prochlorperazine Tab [Compazine Tab] 5 mg PO Q8H PRN 03/18/18 Tramadol HCl 50 mg PO BID 03/18/18 tiZANidine [Zanaflex] 4 mg PO BID PRN 03/18/18 Review of Systems - Review of Systems Constitutional: States: malaise, weakness - generalized EENTM: States: no symptoms reported Respiratory: States: no symptoms reported Cardiology: States: no symptoms reported Gastrointestinal/Abdominal: States: no symptoms reported Genitourinary: States: no symptoms reported Musculoskeletal: States: back pain, neck pain Skin: States: no symptoms reported Neurological: States: headache, other - drowsiness Endocrine: States: no symptoms reported All other Systems: No Change from Baseline Past Medical History (General) - Patient Medical History Hx Seizures: Yes Hx Stroke: No Hx Dementia: Yes Hx Asthma: Yes Hx of COPD: Yes Hx Cardiac Disorders: Yes Hx Congestive Heart Failure: Yes Hx Pacemaker: No Hx Hypertension: Yes Hx Thyroid Disease: No Hx Diabetes: No Hx Gastroesophageal Reflux: Yes Hx Renal Disease: No Hx Cancer: No Hx of HIV: No Hx Hepatitis C: No Hx MRSA: No Surgical History: cholecystectomy, Hysterectomy - Vaccination History Hx Tetanus, Diphtheria Vaccination: No Hx Influenza Vaccination: No Hx Pneumococcal Vaccination: No - Social History Hx Tobacco Use: No Hx Chewing Tobacco Use: No Hx Alcohol Use: No Hx Substance Use: No Hx Substance Use Treatment: No Hx Depression: No Hx Physical Abuse: No Hx Emotional Abuse: No Hx Suspected Abuse: No - Female History Patient : No Family Medical History - Family History Grandparents Family History: Unknown Hx Family Hypertension: Yes - parents Hx Cardiac Disease: Yes - parents Hx Family Cancer: Yes - dad-mesothelioma Physical Exam - Physical Exam General Appearance: Lethargic - but arousable to voice Eye Exam: bilateral normal Ears, Nose, Throat: hearing grossly normal, normal ENT inspection, normal pharynx - mucous membranes are mildly dry Neck: full range of motion - mild right-sided lateral discomfort palpation. No obvious step-off. No evidence of injury otherwise., supple Respiratory: lungs clear, normal breath sounds, no respiratory distress, no accessory muscle use Cardiovascular/Chest: no edema, bradycardia Peripheral Pulses: radial,right: 1+ - telemetry shows sinus bradycardia, radial, left: 1+, dorsalis pedis,right: 1+, dorsalis pedis,left: 1+ Gastrointestinal/Abdominal: non tender, soft Rectal Exam: deferred Back Exam: other - the patient has diffuse discomfort to palpation over her lower back. She does have a small area of bruising where she hit the ground. Extremity: normal range of motion, non-tender, normal inspection, no pedal edema , normal capillary refill Neurologic: lump room supervisor II-XII nml as tested, oriented x 3, other - she is drowsy but oriented. No focal neurological new defects Skin Exam: pallor Comments: Vital Signs - 24 hr 03/18/18 03/18/18 03/18/18 11:37 12:14 12:34 Temperature 96.4 F L Pulse Rate 45 L Pulse Rate [ APICAL] Pulse Rate [ 50 L 45 L Left Brachial] Respiratory 16 16 14 Rate Blood Pressure 75/50 79/52 [Left Arm] O2 Sat by Pulse 95 97 100 Oximetry 03/18/18 03/18/18 03/18/18 13:00 13:27 14:26 Temperature Pulse Rate Pulse Rate [ APICAL] Pulse Rate [ 60 52 L 50 L Left Brachial] Respiratory 18 16 16 Rate Blood Pressure 91/56 111/58 82/53 [Left Arm] O2 Sat by Pulse 98 98 96 Oximetry 03/18/18 03/18/18 03/18/18 15:00 15:30 15:36 Temperature Pulse Rate Pulse Rate [ 48 L 54 L APICAL] Pulse Rate [ 53 L Left Brachial] Respiratory 14 16 16 Rate Blood Pressure 75/49 84/53 79/49 [Left Arm] O2 Sat by Pulse 98 98 98 Oximetry 03/18/18 03/18/18 15:47 16:45 Temperature Pulse Rate Pulse Rate [ 60 APICAL] Pulse Rate [ 88 Left Brachial] Respiratory 16 16 Rate Blood Pressure 82/51 104/53 [Left Arm] O2 Sat by Pulse 98 99 Oximetry Progress - Progress Progress: 03/18/18 18:02 the patient is a 67-year-old female presenting secondary to lethargy after a fall last night. The patient does likely have a concussion. CT scan of the head and cervical spine are negative for acute pathology. She also does have some low back pain from the fall. X-ray shows multiple areas that could be consistent with compression fractures of undetermined age. This may yet require further workup. She is really not complained about this much since her arrival. The patient does have a small urinary tract infection and has received a dose of Rocephin. most significantly however is that the patient has significant hypotension and bradycardia. The hypotension is a worsening of her chronic hypotension and the bradycardia appears to be a sinus bradycardia and is a new issue. It was initially thought that the bradycardia and worsening hypotension were due to medications however the patient has been hydrated and monitored for time and showed no improvement with medications wearing off. Small doses of flumazenil did make the patient more alert temporarily but really had very little effect on her vital signs. Narcan did not help. There has been no hypoxia. The patient does not appear to be in significant distress. We ultimately did place the patient on a low-dose epinephrine drip which has brought up her sinus rhythm from the mid 40s to the mid 80s and her systolic blood pressures from the 70s up to the 100 range. She is feeling a little better. She has not received any further opiates or benzodiazepines, or any other sedating medications. She may benefit from a test of her adrenal function. She has not been given any steroids here at this time. Several of her medications can be associated with adrenal insufficiency. She has seen Dr. Rain in the past for her cardiac issues. Transferred for higher level of care for further workup of the sinus bradycardia and hypotension. critical care time spent on the patient for symptomatic bradycardia with hypotension is 45 minutes excluding otherwise billable procedures and including time spent with counseling of family and making arrangements for higher level of care. - Results/Orders Results/Orders: 03/18/18 11:42 Telemetry .CONTINUOUS 03/18/18 11:45 EKG STAT 03/18/18 13:46 URINE CULTURE W/COLONY COUNT Stat 03/18/18 14:55 EPINEPHrine HCL MULTI-DOSE 5 mg Dextrose 5% 250Ml [D5W 250ml] 250 ml IV ONCE Laboratory Results - last 24 hr 03/18/18 03/18/18 03/18/18 11:20 11:20 11:20 WBC 3.7 L RBC 3.60 L Hgb 11.2 L Hct 34.3 L MCV 95.2 MCH 31.1 H MCHC 32.7 L RDW 13.3 Plt Count 161 MPV 8.9 Absolute Neuts (auto) 1.50 L Absolute Lymphs (auto) 1.70 Absolute Monos (auto) 0.20 Absolute Eos (auto) 0.20 Absolute Basos (auto) 0.00 Neutrophils % 41.4 L Lymphocytes % 45.9 Monocytes % 6.8 Eosinophils % 4.6 Basophils % 1.3 PT 11.0 H INR 1.10 PTT (SP) 34.0 H Sodium 136 Potassium 3.5 L Chloride 108 Carbon Dioxide 24 Anion Gap 7.5 L BUN 19 H Creatinine 0.92 BUN/Creatinine Ratio 20.7 H Random Glucose 84 Serum Osmolality 273.4 L Lactic Acid Calcium 8.6 Total Bilirubin 0.4 AST 15 ALT 10 Alkaline Phosphatase 77 Creatine Kinase 15 L CK-MB (CK-2) 0.6 CK-MB (CK-2) % Not Reportable Troponin I < 0.02 B-Natriuretic Peptide 85.5 Serum Total Protein 5.9 L Albumin 3.2 Globulin 2.7 Albumin/Globulin Ratio 1.2 TSH 0.50 Urine Color Urine Appearance Urine pH Ur Specific [place] Urine Protein Urine Glucose (UA) Urine Ketones Urine Blood Urine Nitrite Urine Bilirubin Urine Urobilinogen Ur Leukocyte Esterase Urine RBC Urine WBC Ur Epithelial Cells Amorphous Sediment Urine Bacteria 03/18/18 03/18/18 11:42 13:46 WBC RBC Hgb Hct MCV MCH MCHC RDW Plt Count MPV Absolute Neuts (auto) Absolute Lymphs (auto) Absolute Monos (auto) Absolute Eos (auto) Absolute Basos (auto) Neutrophils % Lymphocytes % Monocytes % Eosinophils % Basophils % PT INR PTT (SP) Sodium Potassium Chloride Carbon Dioxide Anion Gap BUN Creatinine BUN/Creatinine Ratio Random Glucose Serum Osmolality Lactic Acid 1.3 Calcium Total Bilirubin AST ALT Alkaline Phosphatase Creatine Kinase CK-MB (CK-2) CK-MB (CK-2) % Troponin I B-Natriuretic Peptide Serum Total Protein Albumin Globulin Albumin/Globulin Ratio TSH Urine Color Yellow Urine Appearance Sl cloudy Urine pH 7.0 Ur Specific [place] 1.010 Urine Protein Negative Urine Glucose (UA) Negative Urine Ketones Negative Urine Blood Negative Urine Nitrite Negative Urine Bilirubin Negative Urine Urobilinogen 1.0 Ur Leukocyte Esterase Small H Urine RBC 0 Urine WBC 10-20 H Ur Epithelial Cells 10-20 Amorphous Sediment 1+ Urine Bacteria 1+ EKG shows sinus bradycardia at 45 bpm. Mild nonspecific T-wave changes. Normal QT interval. Normal axis. Chest x-ray shows mild cardiomegaly but no obvious fluid overload. No significant infiltrates. No pneumothorax. CT scan of the head shows no acute trauma. No overt evidence of increased intracranial pressure. No hemorrhage. CT scan of the cervical spine shows no evidence of any acute trauma. She does have chronic degenerative changes. X-ray of pelvis showed no obvious fracture. X-ray of the lumbar spine shows multiple areas of significant degenerative changes. She does have multiple areas in the lumbar spine that could be consistent with compression fractures of an undetermined age. - EKG/XRAY/CT CT Ordered: Yes Departure - Departure Clinical Impression: Symptomatic bradycardia Hypotension Qualifiers: Hypotension type: unspecified hypotension type Qualified Code(s): I95.9 - Hypotension, unspecified Disposition: Transfer to Hospital Condition: Serious Referrals: Sachin Simpson MD [Primary Care Provider] - 1-2 Weeks Home Medications: Ambulatory Orders Esomeprazole Magnesium [Nexium] 40 mg PO DAILY 10/24/12 Furosemide [Lasix] 20 mg PO DAILY 10/24/12 Multiple Vitamin [Multivitamins] 1 cap PO DAILY 10/24/12 Nitroglycerin [Nitrostat] 0.4 mg SL .Q5MIN X3 PRN 10/24/12 Topiramate 100 mg PO TID 10/25/12 Acetaminophen [Tylenol] 650 mg PO Q6H PRN 04/21/14 Ferrous Sulfate [Feosol Tab] 325 mg PO DAILY 04/21/14 Fluticasone/Salmeterol 250/50 [Advair 250/50 Diskus] 1 puff INH DAILY 04/21/14 Gabapentin 600 mg PO BID 04/21/14 Albuterol Inhaler [Ventolin Hfa Inhaler] 2 puff INH QID 04/01/16 HYDROcodone 10MG/APAP 325MG [[place] 10/325] 1 tab PO Q4H PRN 04/01/16 Montelukast [Singulair] 10 mg PO DAILY 04/01/16 Promethazine HCl 25 mg PO PRN PRN 04/01/16 Tcvfiucdod-Fqyxhujjwtdeg-Vddjv [Butalbital/Acetaminophen/ 50-300-40 mg] 1 cap PO TID PRN 12/25/17 Amitriptyline HCl 50 mg PO DAILY 12/26/17 Dabigatran Etexilate [Pradaxa] 150 mg PO BID #60 cap 12/29/17 Albuterol Sulfate Nebs [Proventil Nebs] 2.5 mg INH Q4H PRN 03/18/18 Calcium Carbonate [Calcium] 1,500 mg PO BID 03/18/18 Cholecalciferol [Vitamin D] 400 unit PO DAILY 03/18/18 Diazepam [Valium] 20 mg PO BID 03/18/18 Escitalopram [Lexapro] 10 mg PO DAILY 03/18/18 Loratadine [Claritin] 10 mg PO PRN 03/18/18 Lorenzo Tears W/Lubricant Eye Dr 2 drop BOTH_EYES BID 03/18/18 Prochlorperazine Tab [Compazine Tab] 5 mg PO Q8H PRN 03/18/18 Tramadol HCl 50 mg PO BID 03/18/18 tiZANidine [Zanaflex] 4 mg PO BID PRN 03/18/18 Transfer to Outside Facility - Transfer Information Accepting Provider:: dr huerta Accepting Facility: [facility] Reason for Transfer: required specialist not available
[2018-03-18 18:21] VITALS: O2SAT 97
[2018-03-18 18:27] VITALS: BP 111/68; TEMP 97.2
== END 2018-03-18 18:28 | disposition short-term general hospital (02) ==
LOC: ER 11:29
DX: I95.9 Hypotension, unspecified (principal); R00.1 Bradycardia, unspecified; M47.817 Spondylosis without myelopathy or radiculopathy, lumbosacral region; M47.812 Spondylosis without myelopathy or radiculopathy, cervical region; R51 Headache; R53.1 Weakness; R53.81 Other malaise; I50.9 Heart failure, unspecified; F03.90 Unspecified dementia, unspecified severity, without behavioral disturbance, psychotic disturbance, mood disturbance, and anxiety; J44.9 Chronic obstructive pulmonary disease, unspecified; I10 Essential (primary) hypertension; K21.9 Gastro-esophageal reflux disease without esophagitis; Z79.899 Other long term (current) drug therapy; Z88.6 Allergy status to analgesic agent; Z88.5 Allergy status to narcotic agent; Z88.0 Allergy status to penicillin; Z88.2 Allergy status to sulfonamides; Z79.01 Long term (current) use of anticoagulants; Z86.711 Personal history of pulmonary embolism
CPT/HCPCS: 36415; 70450; 71045; 72100; 72125; 72170; 80053; 81001; 82550; 82553; 83605; 83880; 84443; 84484; 85025; 85610; 85730; 87086; 93005; 94640; J0696; J2310; J7030; J7050; J7060; J7620

== ENCOUNTER → 2018-05-25 | Outpatient (CLI) | payer MEDICARE, MEDICAID ==
--- NOTE | 2018-05-25 15:58 | RAD ---
EXAM DESCRIPTION: Lumbar Spine 3 Views CLINICAL HISTORY: 68 years Female, FX COMPARISON: Radiographs of the lumbar spine dated 03/18/2018. FINDINGS: Superior endplate wedging of L1, L2 and L4 vertebral bodies is noted. There is multilevel degenerative disc disease and facet arthropathy, worse at L5-S1 level. No evidence of spondylolysis or spondylolisthesis. Atherosclerotic calcifications are identified in the abdominal aorta. IMPRESSION: Persistent superior endplate wedging of L1, L2 and L4 vertebral bodies. Electronically signed by: Guerda Velasquez MD 05/25/2018 3:57 PM [facility]
== END ==
LOC: RAD 14:21
PROVIDERS: ATTEND Neurological Surgery
DX: S32.009S Unspecified fracture of unspecified lumbar vertebra, sequela (principal)

== ENCOUNTER 2018-06-09 17:37 | Emergency (ER) | payer MEDICARE, MEDICAID ==
[2018-06-09] MEDS ORDERED: LIDOCAINE 1% 2 ML VIAL INJ ONE (17:40)
--- NOTE | 2018-06-09 17:56 | ED.PDOC ---
History of Present Illness - General Chief Complaint: General Stated Complaint: flu-like sx Time Seen by Provider: 06/09/18 17:53 Source: patient Exam Limitations: no limitations - History of Present Illness Initial Comments: THIS PATIENT IS SENT HERE BY HER PCP FOR EVALUATION. SHE HAS BEEN SICK FOR THE PAST THREE OR FOUR DAYS WITH A FEVER, COUGH, MALAISE MYALGIAS CONGESTION. SHE HAS NOT TAKEN A TEMPERATURE, JUST FELT WARM. THE COUGH IS PRODUCTIVE- YELLOW SPUTUM. Timing/Duration: other Severity: moderate Improving Factors: nothing Worsening Factors: nothing Associated Symptoms: cough, fever/chills, malaise Allergies/Adverse Reactions: Allergies Aspirin Allergy (Verified 12/25/17 18:26) Codeine Allergy (Verified 12/25/17 18:26) Penicillins Allergy (Verified 12/25/17 18:26) Sulfa Drugs Allergy (Verified 12/25/17 18:26) Home Medications: Ambulatory Orders Esomeprazole Magnesium [Nexium] 40 mg PO DAILY 10/24/12 Furosemide [Lasix] 20 mg PO DAILY 10/24/12 Multiple Vitamin [Multivitamins] 1 cap PO DAILY 10/24/12 Nitroglycerin [Nitrostat] 0.4 mg SL .Q5MIN X3 PRN 10/24/12 Topiramate 100 mg PO TID 10/25/12 Ferrous Sulfate [Feosol Tab] 325 mg PO DAILY 04/21/14 Fluticasone/Salmeterol 250/50 [Advair 250/50 Diskus] 1 puff INH DAILY 04/21/14 Gabapentin 600 mg PO BID 04/21/14 Albuterol Inhaler [Ventolin Hfa Inhaler] 2 puff INH QID 04/01/16 HYDROcodone 10MG/APAP 325MG [[place] 10/325] 1 tab PO Q4H PRN 04/01/16 Montelukast [Singulair] 10 mg PO DAILY 04/01/16 Promethazine HCl 25 mg PO PRN PRN 04/01/16 Esndblcjem-Lkwwssjxoykwv-Qdnuj [Butalbital/Acetaminophen/ 50-300-40 mg] 1 cap PO TID PRN 12/25/17 Amitriptyline HCl 50 mg PO DAILY 12/26/17 Albuterol Sulfate Nebs [Proventil Nebs] 2.5 mg INH Q4H PRN 03/18/18 Calcium Carbonate [Calcium] 1,500 mg PO BID 03/18/18 Cholecalciferol [Vitamin D] 400 unit PO DAILY 03/18/18 Diazepam [Valium] 20 mg PO BID 03/18/18 Escitalopram [Lexapro] 10 mg PO DAILY 03/18/18 Loratadine [Claritin] 10 mg PO PRN 03/18/18 [place] Tears W/Lubricant Eye Dr 2 drop BOTH_EYES BID 03/18/18 Prochlorperazine Tab [Compazine Tab] 5 mg PO Q8H PRN 03/18/18 Tramadol HCl 50 mg PO BID 03/18/18 tiZANidine [Zanaflex] 4 mg PO BID PRN 03/18/18 levoFLOXacin [Levaquin] 500 mg PO DAILY #10 tab 06/09/18 Review of Systems - Review of Systems Constitutional: States: fever, malaise EENTM: States: nose congestion Respiratory: States: cough, short of breath Cardiology: States: no symptoms reported Gastrointestinal/Abdominal: States: no symptoms reported Genitourinary: States: no symptoms reported Musculoskeletal: States: joint pain, muscle pain Skin: States: no symptoms reported Neurological: States: no symptoms reported, anxiety Endocrine: States: no symptoms reported Hematologic/Lymphatic: States: no symptoms reported Past Medical History (General) - Patient Medical History Hx Seizures: Yes Hx Stroke: No Hx Dementia: Yes Hx Asthma: Yes Hx of COPD: Yes Hx Cardiac Disorders: Yes - Atrial fib,Hypotension Hx Congestive Heart Failure: Yes Hx Pacemaker: No Hx Hypertension: Yes Hx Thyroid Disease: No Hx Diabetes: No Hx Gastroesophageal Reflux: Yes Hx Renal Disease: No Hx Cancer: No Hx of HIV: No Hx Hepatitis C: No Hx MRSA: No Surgical History: cholecystectomy, gastric bypass, Hysterectomy - Vaccination History Hx Tetanus, Diphtheria Vaccination: No Hx Influenza Vaccination: No Hx Pneumococcal Vaccination: No - Social History Hx Tobacco Use: No Hx Chewing Tobacco Use: No Hx Alcohol Use: No Hx Substance Use: No Hx Substance Use Treatment: No Hx Depression: No Hx Physical Abuse: No Hx Emotional Abuse: No Hx Suspected Abuse: No - Female History Patient : No Family Medical History - Family History Grandparents Family History: Unknown Hx Family Hypertension: Yes - parents Hx Cardiac Disease: Yes - parents Hx Family Cancer: Yes - dad-mesothelioma Physical Exam - Physical Exam General Appearance: Alert, No apparent distress, Well Developed, Well Groomed, Well Nourished Eye Exam: bilateral normal Ears, Nose, Throat: hearing grossly normal, normal ENT inspection, normal pharynx Neck: non-tender, full range of motion, supple, normal inspection Respiratory: lungs clear, normal breath sounds, no respiratory distress, no accessory muscle use Cardiovascular/Chest: normal peripheral pulses, regular rate, rhythm, no edema, no gallop Peripheral Pulses: radial,right: 2+, radial,left: 2+ Gastrointestinal/Abdominal: normal bowel sounds, non tender, soft, no pulsatile mass Rectal Exam: deferred Back Exam: normal inspection Extremity: normal range of motion, normal inspection, no pedal edema Neurologic: alert, oriented x 3 Skin Exam: normal color Lymphatic: no adenopathy Progress - Results/Orders Results/Orders: Laboratory Results - last 24 hr 06/09/18 06/09/18 18:00 18:00 WBC 3.1 L RBC 4.39 Hgb 13.6 Hct 41.4 MCV 94.3 MCH 30.9 MCHC 32.9 L RDW 13.8 Plt Count 163 MPV 8.6 Absolute Neuts (auto) 1.40 L Absolute Lymphs (auto) 1.20 Absolute Monos (auto) 0.30 Absolute Eos (auto) 0.20 Absolute Basos (auto) 0.00 Neutrophils % 44.8 Lymphocytes % 39.4 Monocytes % 8.7 Eosinophils % 5.9 H Basophils % 1.2 Sodium 133 L Potassium 3.8THE CXR IS READ Chloride 104 Carbon Dioxide 22 Anion Gap 10.8 L BUN 11 Creatinine 0.93 BUN/Creatinine Ratio 11.8 Random Glucose 105 Serum Osmolality 266.1 L Calcium 8.9 Total Bilirubin 0.4 AST 18 ALT 13 Alkaline Phosphatase 111 Serum Total Protein 7.2 Albumin 3.7 Globulin 3.5 Albumin/Globulin Ratio 1.1 THE CXR IS READ BY RADIOLOGY BIBASILAR ATELECTASIS. IT SEEMS MORE PROMINENT ON THE LEFT LOWER LOBE. Departure - Departure Clinical Impression: Bronchitis Time of Disposition: 18:33 Disposition: Discharge to Home or Self Care Departure Forms: ED Discharge - Pt. Copy, Patient Portal Self Enrollment Referrals: Sachin Simpson MD [Primary Care Provider] - 1-2 Weeks Prescriptions: levoFLOXacin [Levaquin] 500 mg PO DAILY #10 tab Home Medications: Ambulatory Orders Esomeprazole Magnesium [Nexium] 40 mg PO DAILY 10/24/12 Furosemide [Lasix] 20 mg PO DAILY 10/24/12 Multiple Vitamin [Multivitamins] 1 cap PO DAILY 10/24/12 Nitroglycerin [Nitrostat] 0.4 mg SL .Q5MIN X3 PRN 10/24/12 Topiramate 100 mg PO TID 10/25/12 Ferrous Sulfate [Feosol Tab] 325 mg PO DAILY 04/21/14 Fluticasone/Salmeterol 250/50 [Advair 250/50 Diskus] 1 puff INH DAILY 04/21/14 Gabapentin 600 mg PO BID 04/21/14 Albuterol Inhaler [Ventolin Hfa Inhaler] 2 puff INH QID 04/01/16 HYDROcodone 10MG/APAP 325MG [[place] 10/325] 1 tab PO Q4H PRN 04/01/16 Montelukast [Singulair] 10 mg PO DAILY 04/01/16 Promethazine HCl 25 mg PO PRN PRN 04/01/16 Liiyqwdydh-Fnpvubhmwiccd-Hejua [Butalbital/Acetaminophen/ 50-300-40 mg] 1 cap PO TID PRN 12/25/17 Amitriptyline HCl 50 mg PO DAILY 12/26/17 Albuterol Sulfate Nebs [Proventil Nebs] 2.5 mg INH Q4H PRN 03/18/18 Calcium Carbonate [Calcium] 1,500 mg PO BID 03/18/18 Cholecalciferol [Vitamin D] 400 unit PO DAILY 03/18/18 Diazepam [Valium] 20 mg PO BID 03/18/18 Escitalopram [Lexapro] 10 mg PO DAILY 03/18/18 Loratadine [Claritin] 10 mg PO PRN 03/18/18 [place] Tears W/Lubricant Eye Dr 2 drop BOTH_EYES BID 03/18/18 Prochlorperazine Tab [Compazine Tab] 5 mg PO Q8H PRN 03/18/18 Tramadol HCl 50 mg PO BID 03/18/18 tiZANidine [Zanaflex] 4 mg PO BID PRN 03/18/18 levoFLOXacin [Levaquin] 500 mg PO DAILY #10 tab 06/09/18 Additional Instructions: DIFFERENTIAL DIAGNOSIS: EARLY LLL PNEUMONIA
--- NOTE | 2018-06-09 18:17 | RAD ---
EXAM DESCRIPTION: Chest,2 Views CLINICAL HISTORY: 68 years Female, flu-like sx,chills COMPARISON: 18 March 2018 TECHNIQUE: PA/lateral FINDINGS: Basilar interstitial scarring is observed. The lungs are free of acute infiltrate. A poor inspiratory effect is noted. The heart is within range of normal. No pleural fluid is seen. IMPRESSION: Basilar scarring is noted. No acute parenchymal pathology is detected. Electronically signed by: Karthik Lion MD 06/09/2018 6:16 PM PHOTOGRAPHIC PROCESS SCREEN MAKER
[2018-06-09] MEDS ORDERED: cefTRIAXone SODIUM 1 GM VIAL IM ONE (18:28)
[2018-06-09] MEDS ORDERED: HYDROcodone 5MG/APAP 325MG 1 EA TAB PO ONE (18:41)
[2018-06-09 18:53] VITALS: BP 143/84; TEMP 97.4; O2SAT 98
== END 2018-06-09 18:52 | disposition home or self-care (01) ==
LOC: ER 17:37
DX: J44.9 Chronic obstructive pulmonary disease, unspecified (principal); K21.9 Gastro-esophageal reflux disease without esophagitis; I11.0 Hypertensive heart disease with heart failure; I50.9 Heart failure, unspecified; I48.91 Unspecified atrial fibrillation; F03.90 Unspecified dementia, unspecified severity, without behavioral disturbance, psychotic disturbance, mood disturbance, and anxiety; Z79.899 Other long term (current) drug therapy; Z88.0 Allergy status to penicillin; Z88.5 Allergy status to narcotic agent; Z88.2 Allergy status to sulfonamides; Z88.6 Allergy status to analgesic agent
CPT/HCPCS: 36415; 71046; 80053; 85025; 87502; J0696

== ENCOUNTER → 2018-06-16 | Outpatient (CLI) | payer MEDICARE, MEDICAID | LOC: BFHH 15:52 | PROVIDERS: ATTEND General Practice | DX: J18.9 Pneumonia, unspecified organism (principal) ==

== ENCOUNTER 2018-07-17 14:53 | Emergency (ER) | payer MEDICARE, MEDICAID ==
--- NOTE | 2018-07-17 15:46 | ED.PDOC ---
History of Present Illness - General Chief Complaint: Trauma Stated Complaint: fall Time Seen by Provider: 07/17/18 15:42 Source: patient, family Exam Limitations: no limitations - History of Present Illness Initial Comments: patient comes in today for fall. Patient often becomes dizzy and unstable and she was trying to get out of the shower when she slipped and fell hitting her head, neck, back, and right shoulder. She had no loss of consciousness, change in vision, or emesis. She currently hurts on her head, neck, back, and right shoulder. However, as she is on blood thinners her home health nurse thought she needed to be evaluated. Patient has a past medical history significant for COPD, depression, coronary artery disease Timing/Duration: momentarily Severity: moderate Improving Factors: nothing Worsening Factors: movement Associated Symptoms: denies symptoms Allergies/Adverse Reactions: Allergies Aspirin Allergy (Verified 07/17/18 15:42) Codeine Allergy (Verified 07/17/18 15:42) Penicillins Allergy (Verified 07/17/18 15:42) Sulfa Drugs Allergy (Verified 07/17/18 15:42) Home Medications: Ambulatory Orders Esomeprazole Magnesium [Nexium] 40 mg PO DAILY 10/24/12 Furosemide [Lasix] 20 mg PO DAILY 10/24/12 Multiple Vitamin [Multivitamins] 1 cap PO DAILY 10/24/12 Nitroglycerin [Nitrostat] 0.4 mg SL .Q5MIN X3 PRN 10/24/12 Topiramate 100 mg PO TID 10/25/12 Ferrous Sulfate [Feosol Tab] 325 mg PO DAILY 04/21/14 Fluticasone/Salmeterol 250/50 [Advair 250/50 Diskus] 1 puff INH DAILY 04/21/14 Gabapentin 600 mg PO BID 04/21/14 Albuterol Inhaler [Ventolin Hfa Inhaler] 2 puff INH QID 04/01/16 HYDROcodone 10MG/APAP 325MG [[place] 10/325] 1 tab PO Q4H PRN 04/01/16 Montelukast [Singulair] 10 mg PO DAILY 04/01/16 Promethazine HCl 25 mg PO PRN PRN 04/01/16 Pltorvnuxh-Iajsxnoglvgse-Ivero [Butalbital/Acetaminophen/ 50-300-40 mg] 1 cap PO TID PRN 12/25/17 Amitriptyline HCl 50 mg PO DAILY 12/26/17 Albuterol Sulfate Nebs [Proventil Nebs] 2.5 mg INH Q4H PRN 03/18/18 Calcium Carbonate [Calcium] 1,500 mg PO BID 03/18/18 Cholecalciferol [Vitamin D] 400 unit PO DAILY 03/18/18 Diazepam [Valium] 20 mg PO BID 03/18/18 Escitalopram [Lexapro] 10 mg PO DAILY 03/18/18 Loratadine [Claritin] 10 mg PO PRN 03/18/18 [place] Tears W/Lubricant Eye Dr 2 drop BOTH_EYES BID 03/18/18 Prochlorperazine Tab [Compazine Tab] 5 mg PO Q8H PRN 03/18/18 Tramadol HCl 50 mg PO BID 03/18/18 tiZANidine [Zanaflex] 4 mg PO BID PRN 03/18/18 levoFLOXacin [Levaquin] 500 mg PO DAILY #10 tab 06/09/18 Review of Systems - Review of Systems Constitutional: States: no symptoms reported. Denies: chills, fever EENTM: States: no symptoms reported. Denies: eye pain, blurred vision, ear pain, nose pain Respiratory: States: no symptoms reported. Denies: cough, short of breath Cardiology: States: no symptoms reported. Denies: chest pain Gastrointestinal/Abdominal: States: no symptoms reported. Denies: nausea, vomiting Genitourinary: States: no symptoms reported Musculoskeletal: States: see HPI Past Medical History (General) - Patient Medical History Hx Seizures: Yes Hx Stroke: No Hx Dementia: Yes Hx Asthma: Yes Hx of COPD: Yes Hx Cardiac Disorders: Yes - Atrial fib,Hypotension Hx Congestive Heart Failure: Yes Hx Pacemaker: No Hx Hypertension: Yes Hx Thyroid Disease: No Hx Diabetes: No Hx Gastroesophageal Reflux: Yes Hx Renal Disease: No Hx Cancer: No Hx of HIV: No Hx Hepatitis C: No Hx MRSA: No Surgical History: cholecystectomy, other - Vaccination History Hx Tetanus, Diphtheria Vaccination: No Hx Influenza Vaccination: No Hx Pneumococcal Vaccination: No - Social History Hx Tobacco Use: No Hx Chewing Tobacco Use: No Hx Alcohol Use: No Hx Substance Use: No Hx Substance Use Treatment: No Hx Depression: No Hx Physical Abuse: No Hx Emotional Abuse: No Hx Suspected Abuse: No - Female History Patient : No Family Medical History - Family History Grandparents Family History: Unknown Hx Family Hypertension: Yes - parents Hx Cardiac Disease: Yes - parents Hx Family Cancer: Yes - dad-mesothelioma Physical Exam - Physical Exam General Appearance: Alert, Comfortable, No apparent distress Eye Exam: bilateral normal Ears, Nose, Throat: hearing grossly normal, normal ENT inspection, normal pharynx Neck: non-tender, full range of motion, supple, normal inspection Respiratory: chest non-tender, lungs clear, normal breath sounds, no respiratory distress Cardiovascular/Chest: normal peripheral pulses, regular rate, rhythm, no edema, no murmur Peripheral Pulses: radial,right: 2+, radial,left: 2+ Gastrointestinal/Abdominal: normal bowel sounds, non tender, soft Back Exam: vertebral tenderness - at T9, T10, L2-4, no deformity Extremity: normal range of motion, normal inspection, other - tenderness to right humeral head with no bruising or deformity Progress - Results/Orders Results/Orders: Patient Name: KATIE TELLO Gender: Female Date of : 1950 Referring Physician: MEHRAN HOSKINS Organization: [facility] Accession Number: [id number] Requested Date: July 17, 2018 15:43 Report Status: Final Requested Procedure: 1 Procedure Description: CT HEAD WITHOUT IV CONTRAST Modality: CT Findings Reporting MD: Sima Connolly Fellow MD: Not available Dictation Time: Buyer: Not available Switchboard Wirer Date: PROCEDURE: Head CLINICAL HISTORY: 68 years Female fall on blood thinners, hit head COMPARISON: None. TECHNIQUE: Contiguous axial CT images obtained through the brain without IV contrast. This exam was performed according to our department optimization program which includes automated exposure control, adjustment of the mA and/or kv according to patient size and/or use of iterative reconstruction technique. FINDINGS: The ventricles and sulci are within normal limits for the patient's age. No midline shift or mass effect. No masses identified. No acute intracranial hemorrhage. Hyperostosis frontalis interna. No fluid or significant mucosal thickening in the visualized paranasal sinuses. No depressed calvarial fractures. IMPRESSION: No acute intracranial abnormality is identified. Patient Name: KATIE TELLO Gender: Female Date of : 1950 Referring Physician: MEHRAN HOSKINS Organization: [facility] Accession Number: [id number] Requested Date: July 17, 2018 15:43 Report Status: Final Requested Procedure: 1 Procedure Description: Cervical Spine Modality: CT Findings Reporting MD: Sima Connolly MD: Not available Dictation Time: Buyer: Not available Switchboard Wirer Date: PROCEDURE: Cervical Spine CLINICAL HISTORY: 68 years Female fall on blood thinners, hit head COMPARISON: None. TECHNIQUE: Contiguous axial images obtained through the cervical spine without IV contrast. Coronal and sagittal reformatted images obtained. This exam was performed according to our department optimization program which includes automated exposure control, adjustment of the mA and/or kv according to patient size and/or use of iterative reconstruction technique. FINDINGS: Normal alignment and lordosis. There is narrowing of the C5-C6 disc interspace with marginal osteophytosis. Mild bulging of the disc at C4-5 without significant central canal narrowing. Severe neural foraminal stenosis at C5-6 bilaterally right greater than left. No focal HNP is noted in the cervical spine. IMPRESSION: No acute cervical spinal fracture is identified. Patient Name: KATIE TELLO Gender: Female Date of : 1950 Referring Physician: MEHRAN HOSKINS Organization: [facility] Accession Number: [id number] Requested Date: July 17, 2018 15:43 Report Status: Final Requested Procedure: 1 Procedure Description: Shoulder,Right 2 or More Views Modality: CR Findings Reporting MD: Sima Connolly MD: Not available Dictation Time: Buyer: Not available Switchboard Wirer Date: EXAM DESCRIPTION: Shoulder,Right 2 or More Views CLINICAL HISTORY: 68 years Female fall with pain at T9-10, L2-4 COMPARISON: None. TECHNIQUE: RIGHT shoulder two view FINDINGS: No acute fractures or dislocations identified. No osseous destructive lesions. Acromioclavicular joint appears maintained. There are degenerative changes around the lateral margin of the humeral head. IMPRESSION: No acute fracture or dislocation identified. No axillary or Grashey view was provided Patient Name: KATIE TELLO Gender: Female Date of : 1950 Referring Physician: MEHRAN HOSKINS Organization: [facility] Accession Number: [id number] Requested Date: July 17, 2018 15:43 Report Status: Final Requested Procedure: 1 Procedure Description: XR THORACIC SPINE 2 VIEWS Modality: CR Findings Reporting MD: Sima Connolly Fellow MD: Not available Dictation Time: Buyer: Not available Switchboard Wirer Date: EXAM DESCRIPTION: Thoracic Spine,AP Lateral CLINICAL HISTORY: 68 years ,Female fall with pain at T9-10, L2-4 COMPARISON: None. TECHNIQUE: Three views FINDINGS: Patient is rotated which limits evaluation of the thoracic spine. Mildly tortuous aorta. Multilevel degenerative change in exaggeration of the normal kyphosis. The upper aspect of the thoracic spine is not well visualized in either the AP or lateral view. Atelectasis in the left lung base. IMPRESSION: Multilevel degenerative change in the thoracic spine with bony demineralization The upper portion of the thoracic spine is not well seen in either projection secondary to patient positioning and bony demineralization. Recommend CT or MR for further evaluation if there is concern for fracture Departure - Departure Clinical Impression: Fall Qualifiers: Encounter type: initial encounter Qualified Code(s): W19.XXXA - Unspecified fall, initial encounter Disposition: Discharge to Home or Self Care Departure Forms: ED Discharge - Pt. Copy, Patient Portal Self Enrollment Instructions: DI for Trauma Referrals: Sachin Simpson MD [Primary Care Provider] - 1-2 Weeks Home Medications: Ambulatory Orders Esomeprazole Magnesium [Nexium] 40 mg PO DAILY 10/24/12 Furosemide [Lasix] 20 mg PO DAILY 10/24/12 Multiple Vitamin [Multivitamins] 1 cap PO DAILY 10/24/12 Nitroglycerin [Nitrostat] 0.4 mg SL .Q5MIN X3 PRN 10/24/12 Topiramate 100 mg PO TID 10/25/12 Ferrous Sulfate [Feosol Tab] 325 mg PO DAILY 04/21/14 Fluticasone/Salmeterol 250/50 [Advair 250/50 Diskus] 1 puff INH DAILY 04/21/14 Gabapentin 600 mg PO BID 04/21/14 Albuterol Inhaler [Ventolin Hfa Inhaler] 2 puff INH QID 04/01/16 HYDROcodone 10MG/APAP 325MG [[place] 325] 1 tab PO Q4H PRN 04/01/16 Montelukast [Singulair] 10 mg PO DAILY 04/01/16 Promethazine HCl 25 mg PO PRN PRN 04/01/16 Szxczovoar-Bmrfxmamwstlm-Yebpp [Butalbital/Acetaminophen/ 50-300-40 mg] 1 cap PO TID PRN 12/25/17 Amitriptyline HCl 50 mg PO DAILY 12/26/17 Albuterol Sulfate Nebs [Proventil Nebs] 2.5 mg INH Q4H PRN 03/18/18 Calcium Carbonate [Calcium] 1,500 mg PO BID 03/18/18 Cholecalciferol [Vitamin D] 400 unit PO DAILY 03/18/18 Diazepam [Valium] 20 mg PO BID 03/18/18 Escitalopram [Lexapro] 10 mg PO DAILY 03/18/18 Loratadine [Claritin] 10 mg PO PRN 03/18/18 [place] Tears W/Lubricant Eye Dr 2 drop BOTH_EYES BID 03/18/18 Prochlorperazine Tab [Compazine Tab] 5 mg PO Q8H PRN 03/18/18 Tramadol HCl 50 mg PO BID 03/18/18 tiZANidine [Zanaflex] 4 mg PO BID PRN 03/18/18 levoFLOXacin [Levaquin] 500 mg PO DAILY #10 tab 06/09/18 Additional Instructions: return to ER for altered LOC, shortness of breath. Follow up with PCP in 4-5 days
--- NOTE | 2018-07-17 17:05 | RAD ---
EXAM DESCRIPTION: Shoulder,Right 2 or More Views CLINICAL HISTORY: 68 years Female fall with pain at T9-10, L2-4 COMPARISON: None. TECHNIQUE: RIGHT shoulder two view FINDINGS: No acute fractures or dislocations identified. No osseous destructive lesions. Acromioclavicular joint appears maintained. There are degenerative changes around the lateral margin of the humeral head. IMPRESSION: No acute fracture or dislocation identified. No axillary or Grashey view was provided. Electronically signed by: Sima Connolly MD 07/17/2018 5:02 PM [facility]
--- NOTE | 2018-07-17 17:07 | CT ---
PROCEDURE: Cervical Spine CLINICAL HISTORY: 68 years Female fall on blood thinners, hit head COMPARISON: None. TECHNIQUE: Contiguous axial images obtained through the cervical spine without IV contrast. Coronal and sagittal reformatted images obtained. This exam was performed according to our department optimization program which includes automated exposure control, adjustment of the mA and/or kv according to patient size and/or use of iterative reconstruction technique. FINDINGS: Normal alignment and lordosis. There is narrowing of the C5-C6 disc interspace with marginal osteophytosis. Mild bulging of the disc at C4-5 without significant central canal narrowing. Severe neural foraminal stenosis at C5-6 bilaterally right greater than left. No focal HNP is noted in the cervical spine. IMPRESSION: No acute cervical spinal fracture is identified. Electronically signed by: Sima Connolly MD 07/17/2018 5:05 PM [facility]
--- NOTE | 2018-07-17 17:09 | CT ---
PROCEDURE: Head CLINICAL HISTORY: 68 years Female fall on blood thinners, hit head COMPARISON: None. TECHNIQUE: Contiguous axial CT images obtained through the brain without IV contrast. This exam was performed according to our department optimization program which includes automated exposure control, adjustment of the mA and/or kv according to patient size and/or use of iterative reconstruction technique. FINDINGS: The ventricles and sulci are within normal limits for the patient's age. No midline shift or mass effect. No masses identified. No acute intracranial hemorrhage. Hyperostosis frontalis interna. No fluid or significant mucosal thickening in the visualized paranasal sinuses. No depressed calvarial fractures. IMPRESSION: No acute intracranial abnormality is identified. Electronically signed by: Sima Connolly MD 07/17/2018 5:07 PM COMMERCIAL [employer]OD[employer]
--- NOTE | 2018-07-17 17:09 | RAD ---
EXAM DESCRIPTION: Lumbar Spine 3 Views CLINICAL HISTORY: 68 years ,Female fall with pain at T9-10, L2-4 COMPARISON: 05/25/2018. TECHNIQUE: Three views of the lumbar spine. FINDINGS: The bones are osteopenic. Vertebral body alignment appears unremarkable. Mild compression deformity at L1, L2 and L4 which appears similar compared to the prior study. No definite acute fracture is identified. Degenerative changes. Atherosclerotic calcifications. Postsurgical changes in the hips. Surgical clips in the right upper quadrant. Suture material around loops of bowel in the left upper quadrant. IMPRESSION: Mild compression fracture deformities at L1, L2 and L4 which appears similar compared to the prior study. No definite acute fracture is identified. Electronically signed by: Leif Connolly MD 07/17/2018 5:06 PM GAME TECHNICIAN
--- NOTE | 2018-07-17 17:11 | RAD ---
EXAM DESCRIPTION: Thoracic Spine,AP Lateral CLINICAL HISTORY: 68 years ,Female fall with pain at T9-10, L2-4 COMPARISON: None. TECHNIQUE: Three views FINDINGS: Patient is rotated which limits evaluation of the thoracic spine. Mildly tortuous aorta. Multilevel degenerative change in exaggeration of the normal kyphosis. The upper aspect of the thoracic spine is not well visualized in either the AP or lateral view. Atelectasis in the left lung base. IMPRESSION: Multilevel degenerative change in the thoracic spine with bony demineralization The upper portion of the thoracic spine is not well seen in either projection secondary to patient positioning and bony demineralization. Recommend CT or MR for further evaluation if there is concern for fracture Electronically signed by: Sima Connolly MD 07/17/2018 5:09 PM [employer] DEVEL[employer]
[2018-07-17 18:36] VITALS: BP 136/84; TEMP 98.6; O2SAT 97
== END 2018-07-17 17:15 | disposition home or self-care (01) ==
LOC: ER 14:53
DX: R51 Headache (principal); M54.2 Cervicalgia; M54.9 Dorsalgia, unspecified; M25.511 Pain in right shoulder; R42 Dizziness and giddiness; I25.10 Atherosclerotic heart disease of native coronary artery without angina pectoris; J44.9 Chronic obstructive pulmonary disease, unspecified; F32.9 Major depressive disorder, single episode, unspecified; F03.90 Unspecified dementia, unspecified severity, without behavioral disturbance, psychotic disturbance, mood disturbance, and anxiety; I48.91 Unspecified atrial fibrillation; I50.9 Heart failure, unspecified; I11.0 Hypertensive heart disease with heart failure; K21.9 Gastro-esophageal reflux disease without esophagitis; W01.0XXA Fall on same level from slipping, tripping and stumbling without subsequent striking against object, initial encounter; Z79.899 Other long term (current) drug therapy; Z88.6 Allergy status to analgesic agent; Z88.5 Allergy status to narcotic agent; Z88.0 Allergy status to penicillin; Z88.2 Allergy status to sulfonamides; Y92.89 Other specified places as the place of occurrence of the external cause

== ENCOUNTER 2018-10-04 23:36 | Emergency (ER) | payer MEDICARE, MEDICAID ==
[2018-10-05] MEDS ORDERED: ONDANSETRON ODT 8 MG TAB SL ONE (00:04)
--- NOTE | 2018-10-05 00:52 | RAD ---
ABDOMEN AND CHEST 10/04/2018. CLINICAL HISTORY: Lower abdominal pain and vomiting. COMPARISON: Chest 06/09/2018 TECHNIQUE: Supine and upright AP images of the abdomen and single frontal Chest. FINDINGS: ABDOMEN: There is mild scattered stool throughout the colon. Normal bowel caliber. No pathologic calcification. No free air. Surgical clips in the right upper quadrant noted. There are left upper abdominal surgical sutures. No free air. Solid visceral organ shadows appear normal. Generalized decreased bone density. Proximal right femur fixation hardware noted. Left hip arthroscopy appears intact. CHEST: The heart is normal in size. There are streaky densities are noted within the right and left lower lobe due to discoid atelectasis. No consolidation. Pleural spaces are clear. IMPRESSION: 1. Unremarkable exam of the abdomen. 2. No acute chest disease. Mild bilateral lower lobe atelectasis. Electronically signed by: Meghan Solis DO 10/05/2018 12:50 AM CDT
--- NOTE | 2018-10-05 02:45 | CT ---
EXAM DESCRIPTION: CT ABDOMEN AND PELVIS WITHOUT CONTRAST CLINICAL HISTORY: rlq pain, nv COMPARISON: None Available. TECHNIQUE: CT of the abdomen and pelvis without IV contrast. Evaluation of the solid organs and vasculature is suboptimal due to lack of IV contrast. DLP: 1033.07 mGy-cm FINDINGS: Lung Bases: Linear left basilar opacities likely related to discoid atelectasis. Bones: Degenerative change of the spine. Left hip arthroplasty. Fixation of the right hip. Abdomen: Liver: The liver has normal size and density. Mild intra and extrahepatic biliary dilatation. Gallbladder: Prior cholecystectomy. Spleen, Pancreas, and Adrenal Glands: The spleen, pancreas, and adrenal glands are unremarkable. Kidneys: The kidneys have normal size and contour without evidence of hydronephrosis. No obstructing ureteral calculi. Nonobstructing left renal calculi. Vasculature: Aortoiliac atherosclerosis. IVC is unremarkable Stomach: The stomach and duodenum have normal course. Other: No free intraperitoneal air. No free fluid or lymphadenopathy. Pelvis: Bladder: Urinary bladder is unremarkable. Bowel: Left upper abdominal small bowel anastomosis. Mild prominence of the small bowel at the anastomosis is otherwise no dilated loops of large or small bowel. Appendix: Normal appendix. Pelvis: Prior hysterectomy. IMPRESSION: 1. No acute inflammatory process identified. 2. No obstructing left nephrolithiasis. 3. Mild intra and extrahepatic biliary dilatation may be related to previous cholecystectomy. Correlation with liver function tests recommended. This exam was performed according to our departmental dose-optimization program, which includes automated exposure control, adjustment of the mA and/or kV according to patient size and/or use of iterative reconstruction technique. Electronically signed by: Hemal Egan 10/05/2018 2:43 AM CDT
[2018-10-05] MEDS ORDERED: AZITHROMYCIN 250 MG TAB PO ONE (03:03)
[2018-10-05] MEDS ORDERED: CIPROFLOXACIN 500 MG TAB PO ONE (03:04)
[2018-10-05] MEDS ORDERED: metroNIDAZOLE 500 MG TAB PO ONE (03:04)
--- NOTE | 2018-10-05 03:06 | ED.PDOC ---
History of Present Illness - General Chief Complaint: Abdominal Pain Stated Complaint: RLQ pain since 0900, N/V Time Seen by Provider: 10/04/18 23:59 Source: patient Exam Limitations: no limitations - History of Present Illness Initial Comments: the patient 68-year-old female presenting to the emergency room secondary to abdominal cramping throughout the day with pain and a little worse in the right lower quadrant than elsewhere. She has had some nausea here since her arrival. No real vomiting. She was feeling okay yesterday. She has been passing gas. She has had a bowel movement. No evidence of any GI bleeding. Timing/Duration: 24 hours Severity: moderate Improving Factors: nothing Worsening Factors: nothing Associated Symptoms: malaise, nausea/vomiting Allergies/Adverse Reactions: Allergies Aspirin Allergy (Verified 10/04/18 23:54) Codeine Allergy (Verified 10/04/18 23:54) Penicillins Allergy (Verified 10/04/18 23:54) Sulfa Drugs Allergy (Verified 10/04/18 23:54) Home Medications: Ambulatory Orders Esomeprazole Magnesium [Nexium] 40 mg PO DAILY 10/24/12 Furosemide [Lasix] 20 mg PO DAILY 10/24/12 Nitroglycerin [Nitrostat] 0.4 mg SL .Q5MIN X3 PRN 10/24/12 Topiramate 100 mg PO TID 10/25/12 Fluticasone/Salmeterol 250/50 [Advair 250/50 Diskus] 1 puff INH DAILY 04/21/14 Gabapentin 600 mg PO BID 04/21/14 Albuterol Inhaler [Ventolin Hfa Inhaler] 2 puff INH QID 04/01/16 HYDROcodone 10MG/APAP 325MG [[place] 10/325] 1 tab PO Q4H PRN 04/01/16 Montelukast [Singulair] 10 mg PO DAILY 04/01/16 Ijpnrkbkxr-Frzrunxgbqrig-Dvylo [Butalbital/Acetaminophen/ 50-300-40 mg] 1 cap PO TID PRN 12/25/17 Amitriptyline HCl 50 mg PO DAILY 12/26/17 Albuterol Sulfate Nebs [Proventil Nebs] 2.5 mg INH Q4H PRN 03/18/18 Diazepam [Valium] 0.5 mg PO TID 10/11/18 Escitalopram [Lexapro] 10 mg PO DAILY 03/18/18 Prochlorperazine Tab [Compazine Tab] 5 mg PO Q8H PRN 03/18/18 Tramadol HCl 50 mg PO BID 03/18/18 tiZANidine [Zanaflex] 4 mg PO BID PRN 03/18/18 Dabigatran Etexilate Mesylate [Pradaxa] 150 mg PO BID 10/04/18 Lisinopril [Prinivil] 10 mg PO DAILY 10/04/18 Ciprofloxacin [Cipro] 500 mg PO BID #10 tab 10/05/18 Metronidazole 500 mg PO TID #14 tab 10/05/18 Ondansetron [Ondansetron Odt] 4 mg PO Q8HR PRN #5 tab 10/05/18 Review of Systems - Review of Systems Constitutional: States: no symptoms reported EENTM: States: no symptoms reported Respiratory: States: no symptoms reported Cardiology: States: no symptoms reported Gastrointestinal/Abdominal: States: abdominal pain, nausea Genitourinary: States: no symptoms reported Musculoskeletal: States: no symptoms reported Skin: States: no symptoms reported Neurological: States: anxiety Endocrine: States: no symptoms reported All other Systems: No Change from Baseline Past Medical History (General) - Patient Medical History Hx Seizures: Yes Hx Stroke: No Hx Dementia: Yes Hx Asthma: Yes Hx of COPD: Yes Hx Cardiac Disorders: Yes - Atrial fib,Hypotension Hx Congestive Heart Failure: Yes Hx Pacemaker: No Hx Hypertension: Yes Hx Thyroid Disease: No Hx Diabetes: No Hx Gastroesophageal Reflux: Yes Hx Renal Disease: No Hx Cancer: No Hx of HIV: No Hx Hepatitis C: No Hx MRSA: No Surgical History: cholecystectomy - Vaccination History Hx Tetanus, Diphtheria Vaccination: Yes - 2017 Hx Influenza Vaccination: No Hx Pneumococcal Vaccination: No - Social History Hx Tobacco Use: No Hx Chewing Tobacco Use: No Hx Alcohol Use: No Hx Substance Use: No Hx Substance Use Treatment: No Hx Depression: Yes Hx Physical Abuse: No Hx Emotional Abuse: No Hx Suspected Abuse: No - Female History Patient : No Family Medical History - Family History Grandparents Family History: Unknown Hx Family Hypertension: Yes - parents Hx Cardiac Disease: Yes - parents Hx Family Cancer: Yes - dad-mesothelioma Physical Exam - Physical Exam General Appearance: Alert, No apparent distress Eye Exam: bilateral normal Ears, Nose, Throat: hearing grossly normal, normal ENT inspection Neck: full range of motion, supple Respiratory: lungs clear, normal breath sounds, no respiratory distress, no accessory muscle use Cardiovascular/Chest: normal peripheral pulses, regular rate, rhythm, no edema Peripheral Pulses: radial,right: 2+, radial,left: 2+ Gastrointestinal/Abdominal: soft, other - mild right lower quadrant discomfort palpation. 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 The patient is going to be placed on ciprofloxacin and Flagyl for 5 days. She needs to avoid any alcohol intake. Laboratory work and CT scan are reassuring. She will also be written for Zosyn for as needed use to control any nausea or vomiting. She needs to avoid overusing her pain medications as this does make her blood pressures drop too low. She needs to keep herself well-hydrated. Maintain a bland diet. Take [id number] Pepcid twice daily for the next 2 weeks. ER warnings were gi paul. Follow-up with primary care doctor later this week. - Results/Orders Results/Orders: 10/05/18 00:15 Urine Culture Stat 10/05/18 00:28 AMYLASE Stat [facility] [employer] Stat CT abdomen and pelvis failed to show any acute pathology. No evidence of any appendicitis, or diverticulitis. She does have numerous long-standing changes. Laboratory Results - last 24 hr 10/05/18 10/05/18 10/05/18 00:02 00:15 00:28 WBC 5.2 RBC 4.25 Hgb 13.3 Hct 40.6 MCV 95.6 MCH 31.4 H MCHC 32.8 L RDW 13.6 Plt Count 196 MPV 8.6 Absolute Neuts (auto) 2.80 Absolute Lymphs (auto) 1.80 Absolute Monos (auto) 0.30 Absolute Eos (auto) 0.20 Absolute Basos (auto) 0.10 Neutrophils % 54.5 Lymphocytes % 34.4 Monocytes % 6.2 Eosinophils % 3.8 Basophils % 1.1 Sodium 135 Potassium 3.8 Chloride 102 Carbon Dioxide 24 Anion Gap 12.8 BUN 24 H Creatinine 1.09 BUN/Creatinine Ratio 22.0 H Random Glucose 95 Serum Osmolality 273.9 L Lactic Acid Calcium 9.1 Total Bilirubin 0.4 AST 19 ALT 13 Alkaline Phosphatase 106 Creatine Kinase 62 CK-MB (CK-2) 1.8 Troponin I < 0.02 Serum Total Protein 7.4 Albumin 4.1 Globulin 3.3 Albumin/Globulin Ratio 1.2 Amylase 64 Lipase 28 Urine Color Yellow Urine Appearance Clear Urine pH 5.5 Ur Specific [place] 1.015 Urine Protein Negative Urine Glucose (UA) Negative Urine Ketones Negative Urine Blood Negative Urine Nitrite Negative Urine Bilirubin Negative Urine Urobilinogen 0.2 Ur Leukocyte Esterase Small H Urine RBC 0 Urine WBC 5-10 H Ur Epithelial Cells 10-20 Urine Bacteria 1+ Hyaline Casts 0-1 10/05/18 00:28 WBC RBC Hgb Hct MCV MCH MCHC RDW Plt Count MPV Absolute Neuts (auto) Absolute Lymphs (auto) Absolute Monos (auto) Absolute Eos (auto) Absolute Basos (auto) Neutrophils % Lymphocytes % Monocytes % Eosinophils % Basophils % Sodium Potassium Chloride Carbon Dioxide Anion Gap BUN Creatinine BUN/Creatinine Ratio Random Glucose Serum Osmolality Lactic Acid 0.8 Calcium Total Bilirubin AST ALT Alkaline Phosphatase Creatine Kinase CK-MB (CK-2) Troponin I Serum Total Protein Albumin Globulin Albumin/Globulin Ratio Amylase Lipase Urine Color Urine Appearance Urine pH Ur Specific [place] Urine Protein Urine Glucose (UA) Urine Ketones Urine Blood Urine Nitrite Urine Bilirubin Urine Urobilinogen Ur Leukocyte Esterase Urine RBC Urine WBC Ur Epithelial Cells Urine Bacteria Hyaline Casts Departure - Departure Clinical Impression: Gastroenteritis Disposition: Discharge to Home or Self Care Condition: Fair Departure Forms: ED Discharge - Pt. Copy, Patient Portal Self Enrollment Instructions: Bacterial Gastroenteritis, Child (DC) Diet: bland diet Activity: increase activity as tolerated Referrals: Sachin Simpson MD [Primary Care Provider] - 1-5 Days Prescriptions: Ondansetron [Ondansetron Odt] 4 mg PO Q8HR PRN #5 tab PRN Reason: Nausea/Vomiting Ciprofloxacin [Cipro] 500 mg PO BID #10 tab Metronidazole 500 mg PO TID #14 tab Home Medications: Ambulatory Orders Esomeprazole Magnesium [Nexium] 40 mg PO DAILY 10/24/12 Furosemide [Lasix] 20 mg PO DAILY 10/24/12 Nitroglycerin [Nitrostat] 0.4 mg SL .Q5MIN X3 PRN 10/24/12 Topiramate 100 mg PO TID 10/25/12 Fluticasone/Salmeterol 250/50 [Advair 250/50 Diskus] 1 puff INH DAILY 04/21/14 Gabapentin 600 mg PO BID 04/21/14 Albuterol Inhaler [Ventolin Hfa Inhaler] 2 puff INH QID 04/01/16 HYDROcodone 10MG/APAP 325MG [[place] 10/325] 1 tab PO Q4H PRN 04/01/16 Montelukast [Singulair] 10 mg PO DAILY 04/01/16 Yekyggmypa-Mwkizynznkdaw-Dmmec [Butalbital/Acetaminophen/ 50-300-40 mg] 1 cap PO TID PRN 12/25/17 Amitriptyline HCl 50 mg PO DAILY 12/26/17 Albuterol Sulfate Nebs [Proventil Nebs] 2.5 mg INH Q4H PRN 03/18/18 Diazepam [Valium] 0.5 mg PO TID 03/18/18 Escitalopram [Lexapro] 10 mg PO DAILY 03/18/18 Prochlorperazine Tab [Compazine Tab] 5 mg PO Q8H PRN 03/18/18 Tramadol HCl 50 mg PO BID 03/18/18 tiZANidine [Zanaflex] 4 mg PO BID PRN 03/18/18 Dabigatran Etexilate Mesylate [Pradaxa] 150 mg PO BID 10/04/18 Lisinopril [Prinivil] 10 mg PO DAILY 10/04/18 Ciprofloxacin [Cipro] 500 mg PO BID #10 tab 10/05/18 Metronidazole 500 mg PO TID #14 tab 10/05/18 Ondansetron [Ondansetron Odt] 4 mg PO Q8HR PRN #5 tab 10/05/18 Additional Instructions: the patient is a 68-year-old female presenting with what appears to be an acute gastroenteritis, colitis. The patient is going to be placed on ciprofloxacin and Flagyl for 5 days. She needs to avoid any alcohol intake. Laboratory work and CT scan are reassuring. She will also be written for Zosyn for as needed use to control any nausea or vomiting. She needs to avoid overusing her pain medications as this does make her blood pressures drop too low. She needs to keep herself well-hydrated. Maintain a bland diet. Take [id number] Pepcid twice daily for the next 2 weeks. ER warnings were given. Follow-up with primary care doctor later this week.
[2018-10-05] MEDS ORDERED: KETOROLAC TROMETHAMINE INJ 30 MG/ML VIAL IM ONE (03:07)
[2018-10-05 03:38] VITALS: BP 97/59; TEMP 97.3; O2SAT 97
== END 2018-10-05 03:40 | disposition home or self-care (01) ==
LOC: ER 23:36
DX: K52.9 Noninfective gastroenteritis and colitis, unspecified (principal); R56.9 Unspecified convulsions; F03.90 Unspecified dementia, unspecified severity, without behavioral disturbance, psychotic disturbance, mood disturbance, and anxiety; J44.9 Chronic obstructive pulmonary disease, unspecified; I48.91 Unspecified atrial fibrillation; I50.9 Heart failure, unspecified; I11.0 Hypertensive heart disease with heart failure; K21.9 Gastro-esophageal reflux disease without esophagitis; F32.9 Major depressive disorder, single episode, unspecified; Z90.49 Acquired absence of other specified parts of digestive tract; Z79.899 Other long term (current) drug therapy; Z88.6 Allergy status to analgesic agent; Z88.5 Allergy status to narcotic agent; Z88.0 Allergy status to penicillin; Z88.2 Allergy status to sulfonamides
CPT/HCPCS: 36415; 74019; 74176; 80053; 81001; 82150; 82550; 82553; 83605; 83690; 84484; 85025; 87040; 87086; 87502; J1885; Q0144

== ENCOUNTER 2018-10-15 01:43 | Emergency (ER) | payer MEDICARE, MEDICAID ==
[2018-10-15] MEDS ORDERED: SODIUM CHLORIDE 0.9% 1000ML 1,000 ML ONE (01:45)
[2018-10-15] MEDS ORDERED: NOREPINEPHRINE BITARTRATE 4 MG in DEXTROSE 5% 250ML 250 ML IVPB ONE (02:00)
[2018-10-15] MEDS ORDERED: NOREPINEPHRINE BITARTRATE 4 MG/4 ML VIAL IVPB ONE (02:02)
[2018-10-15] MEDS ORDERED: DEXTROSE 5% 250ML 250 ML ONE (02:02)
[2018-10-15] MEDS ORDERED: POTASSIUM CHLORIDE ELIXIR 20 MEQ/15 ML UD PO ONE (02:43)
[2018-10-15] MEDS ORDERED: POTASSIUM CHLORIDE INJ 40 MEQ 40 MEQ in SODIUM CHLORIDE 0.9% 250ML 250 ML IVPB ONE (02:44)
[2018-10-15] MEDS ORDERED: FLUMAZENIL 0.1 MG/ML VIAL IV ONE (02:45)
[2018-10-15] MEDS ORDERED: SODIUM CHLORIDE 0.9% 250ML 250 ML ONE (02:46)
[2018-10-15] MEDS ORDERED: POTASSIUM CHLORIDE 40mEq 20ML VIAL ONE (02:46)
[2018-10-15] MEDS ORDERED: raNITIdine HCL INJ 50 MG in SODIUM CHLORIDE 0.9% 50ML 50 ML IVPB ONE (02:58)
[2018-10-15] MEDS ORDERED: SODIUM CHLORIDE 0.9% 50ML 50 ML ONE (03:01)
[2018-10-15] MEDS ORDERED: raNITIdine HCL INJ 25 MG/ML VIAL ONE (03:01)
--- NOTE | 2018-10-15 03:52 | RAD ---
EXAM: XR Chest, 1 View CLINICAL HISTORY: The patient is 68 years old and is Female; severe hypotension, fob+, back surgery TECHNIQUE: Frontal view of the chest. COMPARISON: No relevant prior studies available. FINDINGS: LUNGS: Minimal bilateral infrahilar opacities are present. PLEURAL SPACE: Unremarkable. No pneumothorax. HEART: Unremarkable. No cardiomegaly. MEDIASTINUM: Unremarkable. BONES/JOINTS: There are degenerative changes of the bones. IMPRESSION: Bibasilar atelectasis. Electronically signed by: Alethea Moreland MD 10/15/2018 3:50 AM CDT
--- NOTE | 2018-10-15 03:56 | CT ---
CLINICAL HISTORY: fob+, severe hypotension, lb surgery 2d ago COMPARISON: None. TECHNIQUE: CT ABDOMEN PELVIS WITHOUT IV CONTRAST on 10/15/2018 2:57 AM CDT This exam was performed according to our departmental dose-optimization program, which includes automated exposure control, adjustment of the mA and/or kV according to patient size and/or use of iterative reconstruction technique. FINDINGS: There is patchy bibasilar atelectasis and scarring. Abdomen: The liver is normal in appearance. There is moderate extrahepatic biliary dilatation with the common bile measuring 2.7 cm. There is intrahepatic biliary dilatation as well. There are postoperative changes of the stomach. Cholecystectomy was performed. The pancreas and spleen are normal in appearance. Adrenal glands are normal. The adrenal glands are normal. There is a punctate upper pole right renal calculus. There are three mid and lower pole left renal calculi measuring up to 2 mm. Both kidneys are mildly atrophic. There is no hydronephrosis. Abdominal aorta is normal in course and caliber without aneurysm. There is no free air. There is no retroperitoneal adenopathy. Pelvis: There is moderate thickening of the left colon, especially the splenic flexure. Urinary bladder is unremarkable. There is small amount of free pelvic fluid. Appendix is normal. Skeleton: There are no acute osseous findings. No suspicious bony lesions. IMPRESSION: Predominantly left colonic infectious or inflammatory colitis. Mild bilateral nephrolithiasis without hydronephrosis. Extensive biliary dilatation with no clear etiology. Electronically signed by: Edwin Milligan MD 10/15/2018 3:54 AM CDT
[2018-10-15] MEDS ORDERED: levoFLOXacin 500MG IV 500 MG in PREMIX BAG 1 BAG IVPB ONE (04:00)
[2018-10-15] MEDS ORDERED: metroNIDAZOLE IV PREMIX 500MG 500 MG in PREMIX BAG 1 BAG IVPB ONE (04:00)
[2018-10-15] MEDS ORDERED: SUCRALFATE 1 GM/10 ML 1 GM UD PO ONE (04:00)
[2018-10-15] MEDS ORDERED: metroNIDAZOLE IV PREMIX 500MG 100 ML IVPB ONE (04:02)
[2018-10-15] MEDS ORDERED: levoFLOXacin 500MG IV 100 ML IVPB ONE (04:02)
--- NOTE | 2018-10-15 04:17 | ED.PDOC ---
History of Present Illness - General Chief Complaint: Neuro Symptoms/Deficits Stated Complaint: sycopal episode at home, semi unresponsive Time Seen by Provider: 10/15/18 02:00 Source: patient Exam Limitations: no limitations - History of Present Illness Initial Comments: The patient's a 68-year-old female brought in by EMS secondary to syncopal episodes at home along with abdominal pain and incontinence of very dark stool. The patient had a kyphoplasty done 2 days ago at [facility]. She restarted her present vaccine yesterday. The patient has not been feeling good all day. She has been having some vague abdominal pain which is not really a new issue for her. She was treated for possible mild colitis 2 weeks ago. She does have a history of reflux and gastritis. She does have a history of overdoing her pain medications and having borderline hypotensive episodes along with significant somnolence. The patient does take an iron supplement. The pat ient apparently passed out for 5 separate times over the hour prior to arrival here. She did fall once but does not seem to really hurt anything. Initial systolic blood pressure upon arrival by EMS was 88. By the time she arrived here we were unable to palpate a pulse and unable to auscultate a blood pressure. Systolic blood pressure was dopplered at 55. the patient was ashen and pale but amazingly still responsive to verbal commands. the patient has had 2 episodes of incontinence of black stool during these syncopal episodes. she reports that her stool is normally dark due to the iron but this was significantly darker. No doris blood.the patient was in normal sinus rhythm. She does have a history of atrial fibrillation. the patient reports that she took her normal evening Valium. She took a hydrocodone around 4 PM and a tramadol around 10 PM. she denies overusing any of her medications. This has been a problem in the past. scopolamine patch was removed from behind the right ear. Timing/Duration: 1-3 hours Severity: severe Improving Factors: medication Worsening Factors: nothing Associated Symptoms: loss of appetite, malaise, syncope, weakness Allergies/Adverse Reactions: Allergies Aspirin Allergy (Verified 10/15/18 02:16) Codeine Allergy (Verified 10/15/18 02:16) Penicillins Allergy (Verified 10/15/18 02:16) Sulfa Drugs Allergy (Verified 10/15/18 02:16) Home Medications: Ambulatory Orders Esomeprazole Magnesium [Nexium] 40 mg PO DAILY 10/24/12 Furosemide [Lasix] 20 mg PO DAILY 10/24/12 Nitroglycerin [Nitrostat] 0.4 mg SL .Q5MIN X3 PRN 10/24/12 Topiramate 100 mg PO TID 10/25/12 Fluticasone/Salmeterol 250/50 [Advair 250/50 Diskus] 1 puff INH DAILY 04/21/14 Gabapentin 600 mg PO BID 04/21/14 Albuterol Inhaler [Ventolin Hfa Inhaler] 2 puff INH QID 04/01/16 HYDROcodone 10MG/APAP 325MG [[place] 10/325] 1 tab PO Q4H PRN 04/01/16 Montelukast [Singulair] 10 mg PO DAILY 04/01/16 Eczqiylqcv-Pfytjnbuesymw-Ssieu [Butalbital/Acetaminophen/ 50-300-40 mg] 1 cap PO TID PRN 12/25/17 Amitriptyline HCl 50 mg PO DAILY 12/26/17 Albuterol Sulfate Nebs [Proventil Nebs] 2.5 mg INH Q4H PRN 03/18/18 Diazepam [Valium] 0.5 mg PO TID 03/18/18 Escitalopram [Lexapro] 10 mg PO DAILY 03/18/18 Prochlorperazine Tab [Compazine Tab] 5 mg PO Q8H PRN 03/18/18 Tramadol HCl 50 mg PO BID 03/18/18 tiZANidine [Zanaflex] 4 mg PO BID PRN 03/18/18 Dabigatran Etexilate Mesylate [Pradaxa] 150 mg PO BID 10/04/18 Lisinopril [Prinivil] 10 mg PO DAILY 10/04/18 Ciprofloxacin [Cipro] 500 mg PO BID #10 tab 10/05/18 Metronidazole 500 mg PO TID #14 tab 10/05/18 Ondansetron [Ondansetron Odt] 4 mg PO Q8HR PRN #5 tab 10/05/18 Review of Systems - Review of Systems Constitutional: States: malaise, weakness EENTM: States: no symptoms reported Respiratory: States: no symptoms reported Cardiology: States: no symptoms reported Gastrointestinal/Abdominal: States: abdominal pain, diarrhea Genitourinary: States: no symptoms reported Musculoskeletal: States: see HPI, back pain Skin: States: no symptoms reported Neurological: States: see HPI - no focal new neurological changes however All other Systems: No Change from Baseline Past Medical History (General) - Patient Medical History Hx Seizures: Yes Hx Stroke: No Hx Dementia: Yes Hx Asthma: Yes Hx of COPD: Yes Hx Cardiac Disorders: Yes - Atrial fib,Hypotension Hx Congestive Heart Failure: No Hx Pacemaker: No Hx Hypertension: Yes Hx Thyroid Disease: No Hx Diabetes: No Hx Gastroesophageal Reflux: Yes Hx Renal Disease: No Hx Cancer: No Hx of HIV: No Hx Hepatitis C: No Hx MRSA: No Surgical History: gastric bypass, Hysterectomy, other - Vaccination History Hx Tetanus, Diphtheria Vaccination: Yes - 2017 Hx Influenza Vaccination: No Hx Pneumococcal Vaccination: No - Social History Hx Tobacco Use: No Hx Chewing Tobacco Use: No Hx Alcohol Use: No Hx Substance Use: No Hx Substance Use Treatment: No Hx Depression: Yes Hx Physical Abuse: No Hx Emotional Abuse: No Hx Suspected Abuse: No - Female History Patient : No Family Medical History - Family History Grandparents Family History: Unknown Hx Family Hypertension: Yes - parents Hx Cardiac Disease: Yes - parents Hx Family Cancer: Yes - dad-mesothelioma Physical Exam - Physical Exam General Appearance: Frail, Lethargic - but still responsive to voice, Ill Appearing Eye Exam: bilateral normal Ears, Nose, Throat: hearing grossly normal, normal ENT inspection - with the exception of moderately dry mucous membranes Neck: full range of motion, supple Respiratory: lungs clear, normal breath sounds, no respiratory distress, no accessory muscle use Cardiovascular/Chest: regular rate, rhythm, other - pulses are initially not palpable due to hypotension. They are palpable however after correction of hypotension. Gastrointestinal/Abdominal: soft, other - diffuse discomfort to palpation. No rebound. No real focal abdominal pain. Rectal Exam: heme positive stool - fecal occult positive. Black. Back Exam: other - bandage in place. Chronic back pain. Extremity: normal range of motion, non-tender, no pedal edema, no calf tenderness, slow capillary refill - initially until hypotension was corrected Neurologic: bander II-XII nml as tested, oriented x 3, other - chronic changes of neuropathy. Drowsy. Skin Exam: pallor Comments: Vital Signs - 24 hr 10/15/18 10/15/18 10/15/18 01:58 02:08 02:10 Temperature 96.7 F L 96.7 F L Pulse Rate Pulse Rate [ 54 L 91 H 89 right] Respiratory 18 18 18 Rate Blood Pressure 54/0 75/60 92/58 [left] O2 Sat by Pulse 92 L 94 L 97 Oximetry 10/15/18 10/15/18 10/15/18 02:19 02:20 02:29 Temperature Pulse Rate 93 H 93 H Pulse Rate [ 54 L 83 94 H right] Respiratory 18 18 Rate Blood Pressure 90/55 85/60 [left] O2 Sat by Pulse 97 97 Oximetry 10/15/18 10/15/18 03:00 03:09 Temperature Pulse Rate Pulse Rate [ 94 H 88 right] Respiratory 20 Rate Blood Pressure 125/80 [left] O2 Sat by Pulse 97 Oximetry Progress - Progress Progress: 10/15/18 04:23 the patient is a 68-year-old female presenting with profound hypotension, syncopal episodes, altered mental status and what appears to be fecal occult positive stool. Primary source of the hypotension is uncertain. It is likely multifactorial. She obviously does have some GI bleeding but how much is uncertain. Serial H&H's will be required. She has had a couple of liters of fluid which will provide some dilutional drop. Additionally she does have a long-standing history of getting too many medications on board and having some hypotensive episodes though this is much more significant than her previous episodes. The patient did respond somewhat to a dose of flumazenil. Additionally the patient does appear dry based on clinical exam and laboratory work. She has since received 2 L of IV fluids. The patient also has what appears to be a colitis at the splenic flexure. Source of the colitis is uncertain, inflammatory, infectious or less likely ischemic. She has received a blood culture and is receiving metronidazole and ciprofloxacin. Sepsis from this is a possibility. Pradaxa is currently being held. It may benefit the pat ient to have upper and lower endoscopies to try and find the source of the bleed and evaluate the colitis directly, particularly since she needs to stay on the blood thinner longer term if at all possible. CT scan was done here without contrast due to renal function at this time. If that improves then a scan with contrast may prove more informative. The patient also has some hypokalemia and has received some oral potassium. Again blood pressures have improved significantly with 2 L of IV fluid and the patient is currently on Levophed at 5 mics, down from 10, maintaining systolic blood pressures between 95 and 110. She is currently receiving IV fluids at 300 cc per hour. A glucose upon arrival at the receiving facility along with an H&H and lactic acid would be warranted. Unfortunately I failed to order a lactic acid upon her arrival here. She does always maintain a elevated d-dimer, so one was deferred here. Again she remains in a normal sinus rhythm. Incidentally noted, but possibly a source of her recurring abdominal pain as well is dilated intra-and extrahepatic biliary ducts. She has no significant elevation of LFTs. Gallbladder has long since been removed. she is going to receive a dose of stress dose steroids. 10/15/18 04:30 10/15/18 04:32 critical care time spent on this patient excluding otherwise billable procedures is 45 minutes. Procedure note: Risks and benefits of central line are explained and patient does agree to proceed. Ultrasound was used for marking of the vein. Right inguinal area is sterilely prepped. Draped. 2 cc of lidocaine without epinephrine were used for local anesthetic. The vein was localized without difficulty, cannulated, dilated and triple lumen catheter was inserted and sewn in place. Patient tolerated this well. All ports flush and draw well. OpSite is placed. 10/15/18 05:07 Departure - Departure Clinical Impression: Shock circulatory, Hypokalemia, Colitis, Recurrent syncope Hypotension Qualifiers: Hypotension type: unspecified hypotension type Qualified Code(s): I95.9 - Hypotension, unspecified Gastrointestinal bleed Qualifiers: GI bleed type/associated pathology: unspecified gastrointestinal hemorrhage typ e Qualified Code(s): K92.2 - Gastrointestinal hemorrhage, unspecified Disposition: Transfer to Hospital Condition: Serious Departure Forms: ED Discharge - Pt. Copy, Patient Portal Self Enrollment Referrals: Sachin Simpson MD [Primary Care Provider] - 1-2 Weeks Home Medications: Ambulatory Orders Esomeprazole Magnesium [Nexium] 40 mg PO DAILY 10/24/12 Furosemide [Lasix] 20 mg PO DAILY 10/24/12 Nitroglycerin [Nitrostat] 0.4 mg SL .Q5MIN X3 PRN 10/24/12 Topiramate 100 mg PO TID 10/25/12 Fluticasone/Salmeterol 250/50 [Advair 250/50 Diskus] 1 puff INH DAILY 04/21/14 Gabapentin 600 mg PO BID 04/21/14 Albuterol Inhaler [Ventolin Hfa Inhaler] 2 puff INH QID 04/01/16 HYDROcodone 10MG/APAP 325MG [[place] 10/325] 1 tab PO Q4H PRN 04/01/16 Montelukast [Singulair] 10 mg PO DAILY 04/01/16 Ccefavezxb-Oksvivpxqlmws-Zglnj [Butalbital/Acetaminophen/ 50-300-40 mg] 1 cap PO TID PRN 12/25/17 Amitriptyline HCl 50 mg PO DAILY 12/26/17 Albuterol Sulfate Nebs [Proventil Nebs] 2.5 mg INH Q4H PRN 03/18/18 Diazepam [Valium] 0.5 mg PO TID 03/18/18 Escitalopram [Lexapro] 10 mg PO DAILY 03/18/18 Prochlorperazine Tab [Compazine Tab] 5 mg PO Q8H PRN 03/18/18 Tramadol HCl 50 mg PO BID 03/18/18 tiZANidine [Zanaflex] 4 mg PO BID PRN 03/18/18 Dabigatran Etexilate Mesylate [Pradaxa] 150 mg PO BID 10/04/18 Lisinopril [Prinivil] 10 mg PO DAILY 10/04/18 Ciprofloxacin [Cipro] 500 mg PO BID #10 tab 10/05/18 Metronidazole 500 mg PO TID #14 tab 10/05/18 Ondansetron [Ondansetron Odt] 4 mg PO Q8HR PRN #5 tab 10/05/18 Transfer to Outside Facility - Transfer Information Accepting Provider:: dr morris Accepting Facility: [facility] Reason for Transfer: required specialist not available
[2018-10-15] MEDS ORDERED: methylPREDNISolone SODIUM SUC 125 MG/2 ML VIAL IV ONE (04:30)
[2018-10-15] MEDS ORDERED: DEX 5% W/NACL 0.45% 1000ML 1,000 ML IVS ONE (05:06)
[2018-10-15 05:29] VITALS: TEMP 96; O2SAT 100
[2018-10-15 05:38] VITALS: BP 113/80
== END 2018-10-15 05:53 | disposition short-term general hospital (02) ==
LOC: ER 01:43
DX: I95.9 Hypotension, unspecified (principal); K92.2 Gastrointestinal hemorrhage, unspecified; E87.6 Hypokalemia; K52.9 Noninfective gastroenteritis and colitis, unspecified; R55 Syncope and collapse; R57.0 Cardiogenic shock; R15.9 Full incontinence of feces; Z98.890 Other specified postprocedural states; I48.91 Unspecified atrial fibrillation; R56.9 Unspecified convulsions; F03.90 Unspecified dementia, unspecified severity, without behavioral disturbance, psychotic disturbance, mood disturbance, and anxiety; J44.9 Chronic obstructive pulmonary disease, unspecified; I10 Essential (primary) hypertension; K21.9 Gastro-esophageal reflux disease without esophagitis; Z98.84 Bariatric surgery status; Z79.899 Other long term (current) drug therapy; Z88.2 Allergy status to sulfonamides; Z88.0 Allergy status to penicillin; Z88.5 Allergy status to narcotic agent; Z88.6 Allergy status to analgesic agent
CPT/HCPCS: 71045; 74176; 80053; 81001; 82270; 82550; 82553; 83880; 84484; 85014; 85018; 85025; 86850; 86900; 86901; 86922; 87040; 93005; A4216; J1956; J2780; J2930; J3480; J3490; J7030; J7050; J7060; J7799

== ENCOUNTER → 2018-11-12 | Outpatient (CLI) | payer MEDICARE, MEDICAID | LOC: BFHH 13:30 | PROVIDERS: ATTEND General Practice | DX: I11.0 Hypertensive heart disease with heart failure (principal); I50.30 Unspecified diastolic (congestive) heart failure; I48.91 Unspecified atrial fibrillation ==

== ENCOUNTER → 2019-03-10 | Outpatient (CLI) | payer OTHER, MEDICAID ==
--- NOTE | 2019-03-11 09:36 | CT ---
Study: CT angiography of the abdomen and pelvis. Indication: MESENTERIC ISCHEMIA Technique: Axial CT angiographic images obtained of the abdomen and pelvis after intravenous injection of contrast. Computer-generated 3D reconstructions (MIPS) were performed. This exam was performed according to our departmental dose-optimization program, which includes automated exposure control, adjustment of the mA and/or kV according to patient size and/or use of iterative reconstruction technique. Comparison: October 15, 2018. Findings: Patchy bibasilar atelectasis. Cardiomegaly. Cholecystectomy clips. Liver, pancreas, spleen, adrenal glands, bladder unremarkable. Uterus and ovaries likely surgically absent or small. Post surgical changes of the stomach. No small bowel obstruction. Appendix and colon unremarkable. No free fluid. No free air. No pathologically enlarged lymphadenopathy. Degenerative and postsurgical changes of the spine noted. Bilateral total hip arthroplasties associated streak artifact degrading the examination. Osteopenia. Atherosclerosis of the origin of the celiac artery and SMA without stenosis. SHARMILA patent. Bilateral single renal arteries. That on the right is patent. Scattered atherosclerosis at the origin of the left renal artery noted with an approximate 30% stenosis. Scattered atherosclerotic changes of the abdominal aorta without aneurysmal dilatation. 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 30% stenosis origin of the left renal artery. No aneurysmal dilatation of the abdominal aorta. Additional findings as above. Electronically signed by: Bobby Garcia MD 03/11/2019 9:34 AM CDT
== END ==
LOC: CT 09:30
PROVIDERS: ATTEND Internal Medicine Gastroenterology
DX: R10.30 Lower abdominal pain, unspecified (principal); D50.9 Iron deficiency anemia, unspecified; D51.3 Other dietary vitamin B12 deficiency anemia; I70.8 Atherosclerosis of other arteries

== ENCOUNTER → 2019-03-28 | Outpatient (CLI) | payer MEDICARE, MEDICAID | LOC: LAB.O 09:45 | PROVIDERS: ATTEND General Practice | DX: I10 Essential (primary) hypertension (principal); I25.10 Atherosclerotic heart disease of native coronary artery without angina pectoris; Z96.642 Presence of left artificial hip joint ==

== ENCOUNTER → 2019-09-01 | Outpatient (CLI) | payer OTHER, MEDICAID | LOC: BFHH 15:58 | PROVIDERS: ATTEND General Practice | DX: R30.0 Dysuria (principal); Z87.440 Personal history of urinary (tract) infections ==

== ENCOUNTER → 2020-02-16 | Outpatient (CLI) | payer MEDICARE, MEDICAID | LOC: LAB.O 08:59 | PROVIDERS: ATTEND General Practice | DX: I10 Essential (primary) hypertension (principal); I50.9 Heart failure, unspecified; I25.10 Atherosclerotic heart disease of native coronary artery without angina pectoris; R53.83 Other fatigue ==